=== PATIENT | male | born 1955 | race Caucasian/White ===

== ENCOUNTER 2024-02-13 16:32 | Inpatient (IN) | payer BC, MEDICARE ==
--- NOTE | 2024-02-13 17:29 | ED ---
Neuro HPI - General Chief Complaint: Neuro Symptoms/Deficit Stated Complaint: neuro sympt Time Seen by Provider: 02/13/24 17:09 Source: patient, RN notes reviewed, old records reviewed Mode of arrival: ambulatory Limitations: no limitations - History of Present Illness Is the patient presenting with stroke symptoms?: Yes -: days(s) Initial Comments: This is a 68-year-old male to the ER for evaluation of expressive aphasia patient has had expressive aphasia for going on 5 days, severe symptoms of expr essive aphasia waxing and waning symptoms do appear to be better now than they were at the onset. Patient did not present to the ER initially because you followed up with family as his son was getting and he did not want to miss the wedding is at bedside states symptoms are improving but still persistent patient does have history of high blood pressure cholesterol diabetes Location: speech, dysarthria History of same: Yes Place: home Severity: severe Quality: improving Improves With: time Worsens With: none On Anticoagulants: Yes Context: sudden onset Treatments Prior to Arrival: none - Related Data Home Medications: Previous Rx's Medication Instructions Recorded Aspirin 325 mg PO DAILY tab 02/15/24 Atorvastatin [Lipitor] 80 mg PO HS #30 tab 02/15/24 Chlorthalidone 25 mg PO DAILY #30 tablet 02/15/24 Clopidogrel [Plavix] 75 mg PO DAILY #30 tab 02/15/24 Losartan Potassium [Cozaar] 100 mg PO HS #30 tab 02/15/24 Allergies/Adverse Reactions: Allergies Allergy/AdvReac Type Severity Reaction Status Date / Time No Known Allergies Allergy Verified 02/19/24 16:36 Review of Systems ROS Statement: Those systems with pertinent positive or pertinent negative responses have been documented in the HPI. ROS Other: All systems not noted in ROS Statement are negative. General Exam - General Exam Comments Initial Comments: Significant expressive aphasia Limitations: no limitations General appearance: alert, in no apparent distress, anxious Head exam: Present: atraumatic, normocephalic, normal inspection Eye exam: Present: normal appearance, PERRL, EOMI. Absent: scleral icterus, conjunctival injection, periorbital swelling ENT exam: Present: normal exam, mucous membranes moist Neck exam: Present: normal inspection. Absent: tenderness, meningismus, lymphadenopathy Respiratory exam: Present: normal lung sounds bilaterally. Absent: respiratory distress, wheezes, rales, rhonchi, stridor Cardiovascular Exam: Present: regular rate, normal rhythm, normal heart sounds. Absent: systolic murmur, diastolic murmur, rubs, gallop, clicks GI/Abdominal exam: Present: soft, normal bowel sounds. Absent: distended, tenderness, guarding, rebound, rigid Extremities exam: Present: normal inspection, full ROM, normal capillary refill. Absent: tenderness, pedal edema, joint swelling, calf tenderness Back exam: Present: normal inspection Neurological exam: Present: alert, oriented X3, CN II-XII intact Psychiatric exam: Present: normal affect, normal mood Skin exam: Present: warm, dry, intact, normal color. Absent: rash Stroke MDM - Lab Data Result diagrams: 02/13/24 17:26 02/13/24 17: Lab Results 02/13/24 02/13/24 02/13/24 Range/Units 17:26 17:26 17:26 WBC 5.7 (3.8-10.6) k/uL RBC 4.68 (4.30-5.90) m/uL Hgb 13.9 (13.0-17.5) gm/dL Hct 42.7 (39.0-53.0) % MCV 91.2 (80.0-100.0) fL MCH 29.7 (25.0-35.0) pg MCHC 32.6 (31.0-37.0) g/dL RDW 12.5 (11.5-15.5) % Plt Count 265 (150-450) k/uL MPV 6.8 Neutrophils % 66 % Lymphocytes % 22 % Monocytes % 9 % Eosinophils % 1 % Basophils % 1 % Neutrophils # 3.8 (1.3-7.7) k/uL Lymphocytes # 1.2 (1.0-4.8) k/uL Monocytes # 0.5 (0-1.0) k/uL Eosinophils # 0.1 (0-0.7) k/uL Basophils # 0.0 (0-0.2) k/uL PT 10.5 (10.0-12.5) sec INR 1.0 (<1.2) APTT 23.4 (22.0-30.0) sec Sodium 141 (137-145) mmol/L Potassium 4.2 (3.5-5.1) mmol/L Chloride 104 (98-107) mmol/L Carbon Dioxide 30 (22-30) mmol/L Anion Gap 7 mmol/L BUN 16 (9-20) mg/dL Creatinine 1.21 (0.66-1.25) mg/dL Est GFR (CKD-EPI)AfAm 72 (>60 ml/min/1.73 sqM) Est GFR (CKD-EPI)NonAf 62 (>60 ml/min/1.73 sqM) Glucose 80 (74-99) mg/dL Estimated Ave Glu mg/dL mg/dL Hemoglobin A1c (<=6.0) % Calcium 10.0 (8.4-10.2) mg/dL Total Bilirubin 1.0 (0.2-1.3) mg/dL AST 32 (17-59) U/L ALT 31 (4-49) U/L Alkaline Phosphatase 54 (38-126) U/L Creatine Kinase 110 (55-170) U/L Troponin I (0.000-0.034) ng/mL Total Protein 7.6 (6.3-8.2) g/dL Albumin 4.4 (3.5-5.0) g/dL 02/13/24 02/13/24 Range/Units 17:26 17:26 WBC (3.8-10.6) k/uL RBC (4.30-5.90) m/uL Hgb (13.0-17.5) gm/dL Hct (39.0-53.0) % MCV (80.0-100.0) fL MCH (25.0-35.0) pg MCHC (31.0-37.0) g/dL RDW (11.5-15.5) % Plt Count (150-450) k/uL MPV Neutrophils % % Lymphocytes % % Monocytes % % Eosinophils % % Basophils % % Neutrophils # (1.3-7.7) k/uL Lymphocytes # (1.0-4.8) k/uL Monocytes # (0-1.0) k/uL Eosinophils # (0-0.7) k/uL Basophils # (0-0.2) k/uL PT (10.0-12.5) sec INR (<1.2) APTT (22.0-30.0) sec Sodium (137-145) mmol/L Potassium (3.5-5.1) mmol/L Chloride (98-107) mmol/L Carbon Dioxide (22-30) mmol/L Anion Gap mmol/L BUN (9-20) mg/dL Creatinine (0.66-1.25) mg/dL Est GFR (CKD-EPI)AfAm (>60 ml/min/1.73 sqM) Est GFR (CKD-EPI)NonAf (>60 ml/min/1.73 sqM) Glucose (74-99) mg/dL Estimated Ave Glu mg/dL 120 mg/dL Hemoglobin A1c 5.8 (<=6.0) % Calcium (8.4-10.2) mg/dL Total Bilirubin (0.2-1.3) mg/dL AST (17-59) U/L ALT (4-49) U/L Alkaline Phosphatase (38-126) U/L Creatine Kinase (55-170) U/L Troponin I <0.012 (0.000-0.034) ng/mL Total Protein (6.3-8.2) g/dL Albumin (3.5-5.0) g/dL - NIH Stroke Scale 1a. Level of Consciousness: (0) alert 1b. LOC Questions: (1) answers 1 question correctly 1c. LOC Commands: (0) performs tasks correctly 2. Best Gaze: (0) normal 3. Visual: (0) no visual loss 4. Facial Palsy: (0) normal symmetrical movement 5a. Motor Arm Left: (0) no drift 5b. Motor Arm Right: (0) no drift 6a. Motor Leg Left: (0) no drift 6b. Motor Leg Right: (0) no drift 7. Limb Ataxia: (0) absent 8. Sensory: (0) normal 9. Best Language: (1) mild/moderate aphasia 10. Dysarthria: (1) mild/moderate dysarthria 11. Extinction/Inattention: (0) no abnormality - Thrombolytic Inclusion/Exclusion Thrombolytic Exclusion Criteria: Symptom Onset > 4.5 Hours - Medical Decision Making 68 male to ER for evaluation of acute CVA patient will be admitted for further evaluation and treatment - Radiology Data Radiology results: report reviewed (CT brain CTA head neck negative for acute disease), image reviewed - EKG Data -: EKG Interpreted by Me (EKG is sinus 88 ME 170 QRS 100 QTc 399) Past Medical History Past Medical History: Hyperlipidemia, Hypertension History of Any Multi-Drug Resistant Organisms: None Reported Past Surgical History: Cholecystectomy Past Psychological History: No Psychological Hx Reported Smoking Status: Never smoker Past Alcohol Use History: None Reported Past Drug Use History: None Reported Course Vital Signs 02/13/24 02/13/24 02/13/24 16:40 17:25 17:53 Temperature 98 F Pulse Rate 105 H 93 96 Respiratory 18 20 18 Rate Blood Pressure 153/79 159/91 134/81 O2 Sat by Pulse 96 96 94 L Oximetry 02/13/24 02/13/24 02/13/24 18:45 19:38 22:16 Temperature Pulse Rate 90 86 86 Respiratory 20 18 19 Rate Blood Pressure 158/98 170/91 161/101 O2 Sat by Pulse 95 93 L 94 L Oximetry 02/14/24 02/14/24 02/14/24 02:10 06:10 07:51 Temperature 97.7 F 98.1 F Pulse Rate 82 86 75 Respiratory 18 18 16 Rate Blood Pressure 151/101 119/56 156/99 O2 Sat by Pulse 97 97 96 Oximetry 02/14/24 02/14/24 02/14/24 11:29 14:22 17:23 Temperature 99.4 F Pulse Rate 67 84 87 Respiratory 18 18 16 Rate Blood Pressure 140/100 181/105 O2 Sat by Pulse 99 97 96 Oximetry 02/14/24 02/14/24 02/14/24 17:25 17:47 20:29 Temperature Pulse Rate 79 Respiratory 17 Rate Blood Pressure 185/110 154/90 174/94 O2 Sat by Pulse 97 Oximetry - Reevaluation(s) Reevaluation #1: Medical records reviewed Code stroke paged on patient arrival Reevaluation #2: 02/22/24 17:50 Patient informed of results questions answered Reevaluation #3: Patient symptoms unchanged here in the ER still with significant aphasia Patient and family informed of results questions answered Reevaluation #4: Was pt. sent in by a medical professional or institution (, PA, RIGGING SLINGER, urgent care, hospital, or half-way...) When possible be specific @ -no Did you speak to anyone other than the patient for history (EMS, parent, family, police, friend...)? What history was obtained from this source @ -no Did you review nursing and triage notes (agree or disagree)? Why? @ -agree Are old charts reviewed (outside hosp., previous admission, EMS record, old EKG, old radiological studies, urgent care reports/EKG's, half-way records)? Report findings @ -yes Differential Diagnosis (chest pain, altered mental status, abdominal pain women, abdominal pain men, vaginal bleeding, weakness, fever, dyspnea, syncope, headache, dizziness, GI bleed, back pain, seizure, CVA, palpatations, mental health, musculoskeletal)? @ -prior EKG interpreted by me (3pts min.). @ -yes X-rays interpreted by me (1pt min.). @ -no CT interpreted by me (1pt min.). @ -Yes negative for acute disease U/S interpreted by me (1pt. min.). @ -no What testing was considered but not performed or refused? (CT, X-rays, U/S, labs)? Why? @ -none What meds were considered but not given or refused? Why? @ -none Did you discuss the management of the patient with other professionals (professionals i.e. , PA, RIGGING SLINGER, lab, RT, psych nurse, 7th grade social studies teacher, customer support consultant, teacher, transport corps officer, pillowcase folder)? Give summary @ -no Was smoking cessation discussed for >3mins.? @ -no Was critical care preformed (if so, how long)? @ -yes31 Were there social determinants of health that impacted care today? How? (Homelessness, low income, unemployed, alcoholism, drug addiction, transportation, low edu. Level, literacy, decrease access to med. care, mcc, rehab)? @ -none Was there de-escalation of care discussed even if they declined (Discuss DNR or withdrawal of care, Hospice)? DNR status @ -no What co-morbidities impacted this encounter? (DM, HTN, Smoking, COPD, CAD, Cancer, CVA, ARF, Chemo, Hep., AIDS, mental health diagnosis, sleep apnea, morbid obesity)? @ -none Was patient admitted / discharged? Hospital course, mention meds given and route, prescriptions, significant lab abnormalities, going to OR and other pertinent info. @ - 68 male to ER for evaluation of acute CVA patient will be admitted for further evaluation and treatment, no tPA secondary to 5 days of symptoms Admitted Undiagnosed new problem with uncertain prognosis? @ -no Drug Therapy requiring intensive monitoring for toxicity (Heparin, Nitro, Insulin, Cardizem)? @ -no Were any procedures done? @ -no Diagnosis/symptom? @ -CVA Acute, or Chronic, or Acute on Chronic? @ -Acute Uncomplicated (without systemic symptoms) or Complicated (systemic symptoms)? @ -Complicated Side effects of treatment? @ -no Exacerbation, Progression, or Severe Exacerbation? @ -exacerbation Poses a threat to life or bodily function? How? (Chest pain, USA, OR, pneumonia, PE, COPD, DKA, ARF, appy, cholecystitis, CVA, Diverticulitis, Homicidal, Suicidal, threat to staff... and all critical care pts) @ -yes\ Reevaluation #5: Differential CVA Ischemic stroke, hemorrhagic stroke, brain tumor, atypical migraine, Wernicke's encephalopathy, seizure, multiple sclerosis, meningitis, encephalitis, hypoglycemia, Guillain-Angela, electrolytes disturbance, myasthenia gravis.... This is not meant to be an all-inclusive list - Consultations Consultation #1: Spoke with on-call, no reason to do tPA Consultation #2: Patient will be admitted for further neurologic evaluation and monitoring Critical Care Time Critical Care Time: Yes Total Critical Care Time: 31 Disposition Clinical Impression: CVA (cerebral vascular accident) Disposition: ADMITTED IP TO THIS [facility] Condition: Serious Is patient prescribed a controlled substance at d/c from ED?: No Time of Disposition: 18:30
[2024-02-13] MEDS: ONDANSETRON 4 MG/2 ML VIAL IVP STA (17:51)
[2024-02-13] MEDS: SODIUM CHLORIDE 0.9% 1,000 ML IV STA (17:53)
[2024-02-13 17:57] LABS: Basophils % (A) 1 %; Eosinophils # (A) 0.1 k/uL (0-0.7); Eosinophils % (A) 1 %; HCT 42.7 % (39.0-53.0); HGB 13.9 gm/dL (13.0-17.5); Lymphocytes # (A) 1.2 k/uL (1.0-4.8); Lymphocytes % (A) 22 %; MCH 29.7 pg (25.0-35.0); MCHC 32.6 g/dL (31.0-37.0); MCV 91.2 fL (80.0-100.0); Mean Platelet Volume 6.8; Monocytes # (A) 0.5 k/uL (0-1.0); Monocytes % (A) 9 %; Neutrophils # (A) 3.8 k/uL (1.3-7.7); Neutrophils % (A) 66 %; Platelet Count 265 k/uL (150-450); RBC 4.68 m/uL (4.30-5.90); RDW 12.5 % (11.5-15.5); WBC 5.7 k/uL (3.8-10.6)
[2024-02-13 18:08] LABS: ALT 31 U/L (4-49); AST 32 U/L (17-59); African American GFR (CKD) 72 (>60 ml/min/1.73 sqM); Albumin 4.4 g/dL (3.5-5.0); Alkaline Phosphatase 54 U/L (38-126); Anion Gap 7 mmol/L; Blood Urea Nitrogen 16 mg/dL (9-20); Carbon Dioxide 30 mmol/L (22-30); Chloride 104 mmol/L (98-107); Creatine Kinase 110 U/L (55-170); Glucose 80 mg/dL (74-99); Non-African American GFR(CKD) 62 (>60 ml/min/1.73 sqM); Potassium 4.2 mmol/L (3.5-5.1); Sodium 141 mmol/L (137-145); Total Protein 7.6 g/dL (6.3-8.2)
[2024-02-13 18:17] LABS: Partial Thromboplastin Time 23.4 sec (22.0-30.0); Prothrombin Time 10.5 sec (10.0-12.5)
--- NOTE | 2024-02-13 18:53 | XR ---
EXAMINATION TYPE: XR chest 2V DATE OF EXAM: 02/13/2024 COMPARISON: None INDICATION: Altered mental status TECHNIQUE: Frontal and lateral views of the chest are obtained. FINDINGS: The heart size is normal. The pulmonary vasculature is normal. The lungs are clear. IMPRESSION: 1. No acute pulmonary process. [facility], , 02/13/2024 6:51 PM
[2024-02-13 19:07] LABS: Amphetamine Screen,Urine Not Detected (NotDetected); Barbiturate Screen,Urine Not Detected (NotDetected); Benzodiazepines Screen,Urine Not Detected (NotDetected); Cocaine Screen,Urine Not Detected (NotDetected); Methadone Screen, Urine Not Detected (NotDetected); Opiate Screen,Urine Not Detected (NotDetected); Oxycodone Screen, Urine Not Detected (NotDetected); Phencyclidine Screen,Urine Not Detected (NotDetected); Tricyclic Antidepressant,Urine Not Detected (NotDetected); Urn Cannabinoid Scrn Not Detected (NotDetected)
--- NOTE | 2024-02-13 19:30 | CT ---
EXAMINATION TYPE: CODE STROKE: CT brain wo contr DATE OF EXAM: 02/13/2024 COMPARISON: None INDICATION: Symptoms started , pt having trouble talking and forming words, pt also having tr ouble using right hand, sent by Dr. SANDOVAL: 1143.6 mGycm, Automated exposure control for dose reduction was used. CONTRAST: None CT of the brain is performed utilizing 3 mm thick sections through the posterior fossa and 3 mm thick sections through the remaining calvarium. Study is performed within 24 hours of arrival to the hosp ital. No abnormal hyperdensity is present to suggest an acute intracranial hemorrhage. No mass lesion is evident. No acute infarcts are evident. There is some hypodensity within the left centrum semiovale subcortica l white matter. Chronic appearing white matter ischemic change likely present. Subcortical infarcts a nd less likely but remains within the differential Ventricles and sulci are appropriate for the patient age. Paranasal sinuses and mastoid air cells within the [id number] are clear. IMPRESSION: 1. There appear to be some mild white matter changes within the left lauren radiata could be subcor tical ischemic changes of indeterminate age. Consider MRI for closer evaluation. 2. No additional suspicious acute changes. [facility], , 02/13/2024 7:28 PM
[2024-02-13] MEDS: SODIUM CHLORIDE 0.9% 1,000 ML IV SCH (19:37)
[2024-02-13] MEDS: ASPIRIN 325 MG TAB PO STA (20:46)
--- NOTE | 2024-02-13 22:38 | CT ---
EXAMINATION TYPE: CT angio head neck DATE OF EXAM: 02/13/2024 HISTORY: Symptoms started , pt having trouble talking and forming words, pt also having troub le using right hand, sent by COMPARISON: CT DLP: 765.2 mGycm. Automated Exposure Control for Dose Reduction was Utilized. TECHNIQUE: CTA scan of the neck is performed with IV Contrast, patient injected with 65ml mL of Isov ue 370, axial images are obtained, coronal and sagittal reformatted images are reviewed. Three-D misti nstructed images are created on an independent workstation and reviewed. Source images are reviewed. FINDINGS: Carotid/Vascular Structures: Common origin of the left common carotid artery and right subclavian fro m the innominate. There is a focal area of narrowing within the proximal left common carotid artery a t the thoracic inlet, example image series 401 image 74. Severe narrowing is present within the left common carotid bulb. There is a critical stenosis at the left internal carotid artery origin. Sever e stenosis is present at the origin right internal carotid artery. Vertebral arteries are codominant. Internal carotid arteries and vertebral arteries are patent to the skull base. Cervical of Ferguson: Vertebral basilar system appears normal. Posterior cerebral vasculature is unrema rkable. Internal carotid arteries bifurcate normally into A1 and M1 segments. A2 segments are normal. The anterior communicating artery is patent. The right posterior communicating artery is patent. The left posterior communicating artery is patent. IMPRESSION: 1. Critical stenosis left internal carotid artery origin. 2. Severe narrowing right internal carotid artery origin. 3. Additional areas of moderate narrowing of the proximal common carotid vessels. 2. No severe stenoses pilot point of [place] NASCET criteria was used in interpretation of this exam? [facility], , 02/13/2024 10:36 PM
[2024-02-14] MEDS: ASPIRIN 325 MG TAB PO SCH (09:09)
[2024-02-14] MEDS: HEPARIN SODIUM,PORCINE 5,000 UNIT/ML 1 ML VIAL SQ SCH (09:10)
[2024-02-14] MEDS: CLOPIDOGREL 75 MG TAB PO SCH (09:10)
--- NOTE | 2024-02-14 09:39 | P.GSCN ---
History of Present Illness Consult date: 02/14/24 Reason for Consult: Carotid stenosis Requesting physician: Lawrence Wheatley History of present illness: This is a pleasant 68-year-old male with a past medical history including hypertension and hyperlipidemia who presented to the emergency department with his for complaints of expressive aphasia. Apparently symptoms began last and he states he cannot get his words and thoughts out that he wants. He denies any slurring of his speech. States symptoms have been consistent for the last few days duration. Denies any other focal deficits associated with that. However does state that he has had some right hand weakness for the past 3 months duration as well as feelings that he has no control of the right arm. States that he had seen his doctor in the beginning of January and also at that time did have some complaints of shoulder pain and they wanted to do physical therapy. He was worked up for a stroke in the emergency department and underwent brain CT as well as a CTA of the head and neck. CTA head and neck is concerning for bilateral ICA stenosis and therefore vascular surgery was consul francisco. Patient denies any history of known carotid disease, no history of cardiac disease. He currently denies any shortness of breath, chest pain, abdominal pain, nausea or vomiting. Home meds include amlodipine 5 mg, Crestor 20 mg daily and losartan 50 mg daily. Review of Systems A 14 point review systems was completed all pertinent positives and negatives as stated in the HPI. Past Medical History Past Medical History: Hyperlipidemia, Hypertension History of Any Multi-Drug Resistant Organisms: None Reported Past Surgical History: Cholecystectomy Past Psychological History: No Psychological Hx Reported Smoking Status: Never smoker Past Alcohol Use History: None Reported Past Drug Use History: None Reported Medications and Allergies Home Medications Medication Instructions Recorded Confirmed Type Losartan [Cozaar] 50 mg PO DAILY 02/13/24 02/13/24 History Rosuvastatin [Crestor] 20 mg PO DAILY 02/13/24 02/13/24 History amLODIPine [Norvasc] 5 mg PO DIRECTED 02/13/24 02/13/24 History Allergies Allergy/AdvReac Type Severity Reaction Status Date / Time No Known Allergies Allergy Verified 02/13/24 17:36 Surgical - Exam Vital Signs Temp Pulse Resp BP Pulse Ox 98 F 105 H 18 153/79 96 02/13/24 16:40 02/13/24 16:40 02/13/24 16:40 02/13/24 16:40 02/13/24 16:40 General appearance: The patient is alert, oriented, appears in no acute distress. HET: Head is normocephalic and atraumatic. Pupils are equal and reactive. Neck: Supple. Left carotid bruit. Heart: Regular. Lungs: Equal expansion, normal respiratory effort. Abdomen: Soft, nontender, nondistended. Extremities: Normal skin color and turgor. +2 palpable radial and DP pulses. Neurological: Patient with expressive aphasia. Difficulty explaining things and answering questions. Minimal right upper extremity weakness. Results - Labs 02/13/24 17:26 02/13/24 17:26 Diabetes panel 02/13/24 Range/Units 17:26 Sodium 141 (137-145) mmol/L Potassium 4.2 (3.5-5.1) mmol/L Chloride 104 (98-107) mmol/L Carbon Dioxide 30 (22-30) mmol/L BUN 16 (9-20) mg/dL Creatinine 1.21 (0.66-1.25) mg/dL Glucose 80 (74-99) mg/dL Calcium 10.0 (8.4-10.2) mg/dL AST 32 (17-59) U/L ALT 31 (4-49) U/L Alkaline Phosphatase 54 (38-126) U/L Total Protein 7.6 (6.3-8.2) g/dL Albumin 4.4 (3.5-5.0) g/dL Calcium panel 02/13/24 Range/Units 17:26 Calcium 10.0 (8.4-10.2) mg/dL Albumin 4.4 (3.5-5.0) g/dL Pituitary panel 02/13/24 Range/Units 17:26 Sodium 141 (137-145) mmol/L Potassium 4.2 (3.5-5.1) mmol/L Chloride 104 (98-107) mmol/L Carbon Dioxide 30 (22-30) mmol/L BUN 16 (9-20) mg/dL Creatinine 1.21 (0.66-1.25) mg/dL Glucose 80 (74-99) mg/dL Calcium 10.0 (8.4-10.2) mg/dL Adrenal panel 02/13/24 Range/Units 17:26 Sodium 141 (137-145) mmol/L Potassium 4.2 (3.5-5.1) mmol/L Chloride 104 (98-107) mmol/L Carbon Dioxide 30 (22-30) mmol/L BUN 16 (9-20) mg/dL Creatinine 1.21 (0.66-1.25) mg/dL Glucose 80 (74-99) mg/dL Calcium 10.0 (8.4-10.2) mg/dL Total Bilirubin 1.0 (0.2-1.3) mg/dL AST 32 (17-59) U/L ALT 31 (4-49) U/L Alkaline Phosphatase 54 (38-126) U/L Total Protein 7.6 (6.3-8.2) g/dL Albumin 4.4 (3.5-5.0) g/dL - Imaging Comments: Brain CT reports there appears to be some mild white matter changes within the left lauren radiata could be subcortical ischemic changes of indeterminate age. Consider MRI for closer evaluation. No additional suspicious acute changes CT angiogram head and neck reports critical stenosis left internal carotid artery origin. Severe narrowing right internal carotid artery origin. Additional areas of moderate narrowing of the proximal common carotid vessels. No severe stenosis reno-sparks of [place]. Assessment and Plan Assessment: 1. Symptomatic severe left ICA stenosis 2. Right ICA stenosis 3. Expressive aphasia, likely ischemic stroke 4. Right upper extremity weakness for past 3 months 5. History of hypertension 6. History of hyperlipidemia Plan: 1. Bilateral carotid ultrasound ordered 2. Brain MRI ordered by neurology, pending 3. Patient has been started on a atorvastatin 80 mg at bedtime, aspirin 325 mg daily and Plavix 75 mg daily 4. Will await further recommendations from neurology 5. Further recommendations forthcoming per vascular surgeon Thank you for this consultation, we will continue to follow. The impression and plan of care has been dictated as directed. Dr. Calzada I performed a history and examination of this patient, discussed the same with the dictator. I agree with the dictator's note ,documented as a scribe. Any additional findings or plans will be noted.
[2024-02-14] MEDS ORDERED: NON FORMULARY DRUG (Rosuvastatin 20 MG Tablet) PO SCH (10:00)
[2024-02-14] MEDS: ENOXAPARIN 40 MG/0.4 ML SYRINGE SQ SCH (10:04)
--- NOTE | 2024-02-14 10:38 | US ---
EXAMINATION TYPE: US carotid duplex BILAT DATE OF EXAM: 02/14/2024 COMPARISON: CTA head neck 02/13/24 CLINICAL INDICATION: Male, 68 years old with history of aphasia; aphasia per order. Hx hypertension, hyperlipidemia. TECHNIQUE: Carotid duplex ultrasound examination. Indirect Doppler criteria was utilized. FINDINGS: EXAM MEASUREMENTS: RIGHT: Peak Systolic Velocity (PSV) cm/sec ----- Right CCA: 88.6 ----- Right ICA: 371.9 ----- Right ECA: 185.6 ICA/CCA ratio: 4.2 RIGHT: End Diastole cm/sec ----- Right CCA: 24.8 ----- Right ICA: 158.5 ----- Right ECA: 20.7 LEFT: Peak Systolic Velocity (PSV) cm/sec ----- Left CCA: 54.5 ----- Left ICA: 423.8 ----- Left ECA: 196.8 ICA/CCA ratio: 7.8 LEFT: End Diastole cm/sec ----- Left CCA: 20.4 ----- Left ICA: 170.3 ----- Left ECA: 15.6 VERTEBRALS (direction of flow): Right Vertebral: Antegrade Left Vertebral: Antegrade Rhythm: Normal DORR OPERATOR NOTES: Great amount of plaque seen within bilateral bulbs and bilateral ICAs, more plaq ue seen on the left. Significant stenosis seen within bilateral ICAs. Appearance of trickle flow seen within left ICA. Elevated velocities noted within right bulb, bilateral ICAs, and bilateral ECAs. ICA/CCA ratio was 4.2 on the right and 7.8 on the left IMPRESSION: Marked amount of atherosclerotic plaque seen within the bilateral carotid bulbs and bilateral ICA wit h left greater than right. Near occlusion of the left ICA at its origin. Greater than 70% stenosis of the right ICA at its origin. Findings correspond to CTA from yesterday. Criteria for Assigning % of Stenosis / Diameter reduction (Estimation based on the indirect measurements of the internal carotid artery velocities (ICA PSV). 1. Normal (no stenosis)=ICA PSV < 125 cm/s: ratio < 2.0: ICA EDV<40 cm/s. 2. Less than 50% stenosis=ICA PSV < 125 cm/s: ratio < 2.0: ICA EDV<40 cm/s. 3. 50 to 69% stenosis=ICA PSV of 125 to 230 cm/s: ration 2.0 ? 4.0: ICA EDV 40-100 cm/s. 4. Greater than 70% stenosis to near occlusion= ICA PSV > 230 cm/s: ratio > 4.0: ICA EDV > 100 cm/s. 5. Near occlusion= ICA PSV velocities may be low or undetectable: variable ratio and ICA EDV. 6. Total occlusion=unable to detect flow. [facility], , 02/14/2024 10:36 AM
[2024-02-14] MEDS: LOSARTAN 50 MG TAB PO SCH (10:39)
[2024-02-14 11:03] LABS: Chol/HDL Ratio 4.76 Ratio; LDL Cholesterol,Calculated 62.6 mg/dL (0.0-131.0)
--- NOTE | 2024-02-14 14:49 | P.HPIM ---
History of Present Illness H&P Date: 02/14/24 Chief Complaint: Trouble speaking This is a pleasant 68-year-old patient, follows with Kennedi Cheatham with Dr. Friend. Chronic stable medical conditions include hypertension, hyperlipidemia. About 6 days ago that is on patient noted that having trouble finding words while speaking. As her son was getting she decided attend a wedding. Finally showed up at his family doctor's office yesterday who sent the patient down to the ER. Finding what has improved some since that day. No change in swallowing no headache no change in vision or any other focal weakness. 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 No smoking alcohol. . Physical examination: VITAL SIGNS: 98, 105, 18, 153 x 79, 96% room air GENERAL: BMI 29.6, reclining bed awake comfortable. EYES: Pupils equal. Conjunctiva dawit l. HEENT: External appearance of nose and ears normal, oral cavity grossly normal. NECK: JVD not raised; masses not palpable. HEART: First and second heart sounds are normal; no edema. LUNGS: Respiratory rate normal; clear to auscultation. ABDOMEN: Soft, nontender, liver spleen not palpable, no masses palpable. PSYCH: Alert and oriented x3; mood and affect dawit l. MUSCULOSKELETAL:No Clubbing/cyanosis;muscles-grossly intact NEUROLOGICAL: Cranial nerves grossly intact; no facial asymmetry, power and sensation grossly intact. Trouble finding words when speaking. Content is fine otherwise. LYMPHATICS: No lymph nodes palpable in the axilla and neck INVESTIGATIONS, reviewed in the clinical context: February 13, 2024: White count 5.7 hemoglobin 13.9 platelets 265 sodium 141 potassium 4.2 BUN 16 creatinine 1.21 Troponin I less than 0.012 LDL 62.6 Urine drug screen: Negative EKG tracing personally reviewed by me-normal sinus rhythm. Chest x-ray film personally reviewed by me-unremarkable. Borderline cardiomegaly CT brain without contrast: Some white matter changes mild in the left lauren radiata area. Could be subcortical ischemic changes of indeterminate age. CT angiogram of head and neck: Critical stenosis left internal carotid artery at the origin. Severe narrowing right internal carotid artery origin. Additional areas of moderate narrowing of the proximal common carotid vessels. Carotid Doppler: Moderate amount of atherosclerotic plaque seen within the bilateral carotid bulbs and bilateral ICA with left greater than right. Near o cclusion of the left ICA at its origin. Greater than 70% stenosis of the right ICA at its origin. Assessment and plan: -Subacute stroke affecting the speech area with symptoms starting 5 days prior to presentation. Expressive dysphasia Aspirin. Plavix. Lipitor. Neurology following. Neurochecks. MRI brain pending -Critical stenosis left internal carotid artery at the region more than 90%. Right internal carotid artery more than 70%. Vascular surgery consulted. -Essential hypertension Cozaar 50 mg a day -Hyperlipidemia Lipitor 80 mg nightly -Acute expressive dysarthria from stroke Speech therapy consult -DNR Care was discussed with the patient at the bedside. Questions answered. Past Medical History Past Medical History: Hyperlipidemia, Hypertension History of Any Multi-Drug Resistant Organisms: None Reported Past Surgical History: Cholecystectomy Past Psychological History: No Psychological Hx Reported Smoking Status: Never smoker Past Alcohol Use History: None Reported Past Drug Use History: None Reported Medications and Allergies Home Medications Medication Instructions Recorded Confirmed Type Losartan [Cozaar] 50 mg PO DAILY 02/13/24 02/13/24 History Rosuvastatin [Crestor] 20 mg PO DAILY 02/13/24 02/13/24 History amLODIPine [Norvasc] 5 mg PO DIRECTED 02/13/24 02/13/24 History Allergies Allergy/AdvReac Type Severity Reaction Status Date / Time No Known Allergies Allergy Verified 02/13/24 17:36 Physical Exam Vitals: Vital Signs Temp Pulse Resp BP Pulse Ox 02/14/24 07:51 98.1 F 75 16 156/99 96 02/14/24 06:10 97.7 F 86 18 119/56 97 02/14/24 02:10 82 18 151/101 97 02/13/24 22:16 86 19 161/101 94 L 02/13/24 19:38 86 18 170/91 93 L 02/13/24 18:45 90 20 158/98 95 02/13/24 17:53 96 18 134/81 94 L 02/13/24 17:25 93 20 159/91 96 02/13/24 16:40 98 F 105 H 18 153/79 96 Intake and Output 02/13/24 02/14/24 02/14/24 22:59 06:59 14:59 Other: Weight 88.451 kg Results CBC & Chem 7: 02/13/24 17:26 02/13/24 17:26
--- NOTE | 2024-02-14 15:47 | CA ---
Transthoracic Echo Report Name: Mich Pendleton Age: 68 Gender: M : 1955 Exam Date: 02/14/2024 10:42 Exam Location: [facility] Ht (in): 68 Wt (lb): 195 Ordering Physician: Kev Paez DO Attending/Referring Phys: [id number], [employer] Loly Correa RDCS Procedure CPT: Indications: Thrombus Cardiac Hx: Technical Quality: Good Contrast 1: Total Dose (mL): Contrast 2: Total Dose (mL): MEASUREMENTS (Male / Female) Normal Values 2D ECHO LV Diastolic Diameter PLAX 4.5 cm 4.2 - 5.9 / 3.9 - 5.3 cm LV Systolic Diameter PLAX 3.1 cm IVS Diastolic Thickness 0.9 cm 0.6 - 1.0 / 0.6 - 0.9 cm LVPW Diastolic Thickness 1.0 cm 0.6 - 1.0 / 0.6 - 0.9 cm LV Relative Wall Thickness 0.4 LVOT Diameter 2.2 cm LV Diastolic Volume MOD BP 114.7 cm??? 67 - 155 / 56 - 104 cm??? LV Systolic Volume MOD BP 42.6 cm??? 22 - 58 / 19 - 49 cm??? LV Ejection Fraction MOD BP 62.9 % >= 55 % LV Cardiac Index MOD BP 2422.3 cm???/min???m??? LV Diastolic Volume MOD 4C 111.9 cm??? LV Systolic Volume MOD 4C 40.5 cm??? LV Ejection Fraction MOD 4C 63.8 % LV Cardiac Index MOD 4C 2399.5 cm???/min???m??? LV Diastolic Length 4C 8.8 cm LV Systolic Length 4C 7.7 cm LV Diastolic Volume MOD 2C 113.8 cm??? LV Systolic Volume MOD 2C 40.8 cm??? LV Ejection Fraction MOD 2C 64.2 % LV Cardiac Index MOD 2C 2453.9 cm???/min???m??? LV Diastolic Length 2C 9.1 cm LV Systolic Length 2C 7.0 cm LA Volume 47.0 cm??? 18 - 58 / 22 - 52 cm??? LA Volume Index 22.6 cm???/m??? 16 - 28 cm???/m??? Ascending Aorta Diameter 4.1 cm DOPPLER AV Peak Velocity 122.4 cm/s AV Peak Gradient 6.0 mmHg AV Mean Velocity 90.5 cm/s AV Mean Gradient 3.5 mmHg AV Velocity Time Integral 27.6 cm LVOT Peak Velocity 93.5 cm/s LVOT Peak Gradient 3.5 mmHg LVOT Velocity Time Integral 19.0 cm LVOT Stroke Volume 75.4 cm??? LVOT Stroke Volume Index 37.3 ml/m??? LVOT Cardiac Index 2532.2 cm???/min???m??? AV Area Cont Eq vti 2.7 cm??? AV Area Cont Eq pk 3.0 cm??? MV Area PHT 4.9 cm??? Mitral E Point Velocity 56.1 cm/s Mitral A Point Velocity 74.7 cm/s Mitral E to A Ratio 0.8 MV Deceleration Time 156.2 ms PV Peak Velocity 114.6 cm/s PV Peak Gradient 5.3 mmHg FINDINGS Left Ventricle Left ventricular ejection fraction is estimated at 60-65 %. Left ventricular cavity size normal. Left ventricular wall thickness normal. No obvious regional wall motion abnormalities. Negative bubble study. Right Ventricle Normal right ventricular size and function. Unable to estimate the right ventricular systolic pressure. Right Atrium Normal right atrial size. Left Atrium Normal left atrial size. Mitral Valve Structurally normal mitral valve. No mitral stenosis, regurgitation or prolapse. Aortic Valve Trileaflet aortic valve. Aortic valve sclerosis. No aortic valve stenosis or regurgitation. Tricuspid Valve Structurally normal tricuspid valve. No tricuspid stenosis. No tricuspid regurgitation. Pulmonic Valve Structurally normal pulmonic valve. No pulmonic stenosis. Trace pulmonic regurgitation. Pericardium No pericardial effusion. Aorta Aortic annulus normal. Ascending aorta mildly enlarged. CONCLUSIONS Normal LV systolic function Previewed by: Dr. Dandre Cardenas MD (Electronically Signed) Final Date: 14 February 2024 15:46
--- NOTE | 2024-02-14 17:03 | MR ---
EXAMINATION TYPE: MR brain wo con DATE OF EXAM: 02/14/2024 4:51 PM CLINICAL INDICATION: Male, 68 years old with history of stroke; PHH, stroke COMPARISON: 02/13/2024. TECHNIQUE: Multi planar, multi sequence imaging was performed through the brain including: T1, T2, In version recovery, Diffusion weighted imaging, and gradient echo imaging. No gadolinium was given. FINDINGS: Scattered areas of restricted diffusion throughout the cortex probably left frontal lobe an d left parietal left temporal lobe. The susceptibility blooming artifact within the cortex in this re gion suggesting laminar necrosis. The myers-white junctions, ventricular system, basal cisterns appear unremarkable. Scattered foci of high T2 signal intensity are seen within the periventricular white matter. Midline structures show no abnormality. The bone marrow signal is within normal limits. Paranasal sinuses and mastoid air cells: Trace left mastoid air cell effusion. Visualized orbits: Orbital contents are intact. IMPRESSION: 1. Acute/subacute CVA predominantly involving the left MCA territory predominantly involving the [place] ex with evidence of laminar necrosis 2. Nonspecific white matter changes, likely secondary to small vessel ischemic disease. [facility], , 02/14/2024 5:01 PM
--- NOTE | 2024-02-14 17:27 | P.CNNES ---
History of Present Illness Consult date: 02/14/24 Requesting physician: Kev Paez Reason for Consult: cva History of Present Illness: This is a 68-year-old gentleman who present emergency department because of speech difficulty. Patient is accompanied with his was at bedside. He stated that he is having difficulty getting his words out since this past and he did not seek any medical attention since he attended his son's wedding even though his family members asked him to have this addressed but he refused. It seems that about 3-month ago the patient had right arm weakness and he followed up with primary care physician and was thought he had a pinched nerve and recommended physical therapy but he did not get physical therapy. Denies any history of stroke in the past. He does have history of hypertension as well as hyperlipidemia. He denies being on any antiplatelet. Denies tobacco use, alcohol use or any illicit drug use. Some of the workup during this hospital visit consisted of: Panel is triglyceride 157, cholesterol is 119, LDL 62 and HDL is 25. Hemoglobin A1c is 5.8. Urine drug screen is nondetected. CT of the head as there appears to be some mild white matter changes within the left lauren radiata could be subcortical ischemic change of indeterminate age. I personally reviewed the CT and I feel the patient has acute to subacute changes over the left MCA territory. CT angiography of the head and neck is reported as critical stenosis in the left internal carotid artery origin. Severe narrowing in the right internal carotid artery origin. Additional area of moderate narrowing of the proximal common carotid vessel. No severe stenosis [place]. Carotid duplex is reported as marked amount of atherosclerotic plaque seen in the bilateral carotid bulb and bilateral ICA with a left greater than right. Near occlusion on the left ICA at its origin. Greater than 70% stenosis of the right ICA at its origin. Finding corresponds to the CT angiography from yesterday The echo is reported as normal left ventricle systolic function. Review of Systems The positive and negative as per HPI. Past Medical History Past Medical History: Hyperlipidemia, Hypertension History of Any Multi-Drug Resistant Organisms: None Reported Past Surgical History: Cholecystectomy Past Psychological History: No Psychological Hx Reported Smoking Status: Never smoker Past Alcohol Use History: None Reported Past Drug Use History: None Reported Medications and Allergies Home Medications Medication Instructions Recorded Confirmed Type Losartan [Cozaar] 50 mg PO DAILY 02/13/24 02/13/24 History Rosuvastatin [Crestor] 20 mg PO DAILY 02/13/24 02/13/24 History amLODIPine [Norvasc] 5 mg PO DIRECTED 02/13/24 02/13/24 History Allergies Allergy/AdvReac Type Severity Reaction Status Date / Time No Known Allergies Allergy Verified 02/13/24 17:36 Physical Examination - Vital Signs Vital Signs: Vital Signs Temp Pulse Resp BP Pulse Ox 02/14/24 14:22 84 18 97 02/14/24 11:29 99.4 F 67 18 140/100 99 02/14/24 07:51 98.1 F 75 16 156/99 96 02/14/24 06:10 97.7 F 86 18 119/56 97 02/14/24 02:10 82 18 151/101 97 02/13/24 22:16 86 19 161/101 94 L 02/13/24 19:38 86 18 170/91 93 L 02/13/24 18:45 90 20 158/98 95 02/13/24 17:53 96 18 134/81 94 L 02/13/24 17:25 93 20 159/91 96 GENERAL: The patient is lying in bed and is not in acute distress. Carotid: Has bruit over bilateral. NEUROLOGICAL: Higher mental function: The patient is awake, alert, oriented to self, place and time. Patient is following commands. Has expressive aphasia. No neglect. Cranial nerves: The pupils are round, equal and reactive to light and accommodation. Visual hess are full to confrontation throughout. Extraocular movement is intact no nystagmus is noted. Facial sensation is normal to touch throughout. The facial strength is normal throughout. Hearing is normal bilaterally to hand rub. Tongue is midline and moved [id number] without any difficulty. No dysarthria is noted. Shoulder shrug is normal bilaterally. Motor: The strength is 5 over 5 throughout. Normal tone and bulk. Cerebellum: Normal finger to nose heel to delacruz bilaterally. Sensation: Sensation is normal to touch throughout. Reflexes (right/left): 2+ throughout. Plantars are downgoing bilaterally. Results - Laboratory Findings CBC and BMP: 02/13/24 17:26 02/13/24 17:26 Abnormal Lab Findings: Abnormal Labs 02/14/24 07:16 Triglycerides 157.00 H HDL Cholesterol 25.00 L Assessment and Plan Assessment: This is a 68-year-old gentleman with underlying history of hypertension, hyperlipidemia who presented emergency department on 02/13/2024 because of expressive aphasia since 02/08/2024 patient refused to have his symptoms be addressed. Also about 3-month ago patient had episode of right hand weakness and followed up with his PCP and it was felt he had a pinched nerve. Acute to subacute ischemic stroke. Symptoms of expressive aphasia. Had a recent right hand weakness. Neurology of stroke is likely due to symptomatic internal carotid artery stenosis. I feel it is the left ICA Severe bilateral ICA stenosis worse on the left than the right Hypertension Hyperlipidemia Plan: I consulted vascular surgery team I ordered MRI of the brain, TSH. Patient was given aspirin 325 once in the ED then was started on aspirin 325 daily by the ED physician. In addition I started the patient on Plavix 75 mg daily. I will load the patient with Plavix 300 mg once. The patient was not on any antiplatelet prior to this. I also started the patient on Lipitor 80 mg nightly for secondary stroke prophylaxis Continue neurochecks Cardiac monitoring PT OT and DIRECTOR ON AIR are consulted Recommend systolic blood pressure to be 1 60-1 80 at this time. Will defer the rest of the medical management to primary and other specialist For DVT prophylaxis patient was started on Lovenox by the primary team The plan discussed with the patient and his was at bedside Thank you for the consultation Time with Patient: Greater than 30
[2024-02-14] MEDS: CLOPIDOGREL 75 MG TAB PO STA (19:34)
[2024-02-14] MEDS: ATORVASTATIN 80 MG TAB PO SCH (20:04)
[2024-02-14 23:58] VITALS: RESP 18
--- NOTE | 2024-02-15 10:28 | P.PN ---
Subjective Progress Note Date: 02/15/24 Principal diagnosis: Carotid stenosis Patient is seen and examined today as a follow-up. He was working with speech therapy who states cognitively he is doing well just suffering from expressive aphasia. He underwent MRI of the brain which reported acute/subacute CVA predominantly involving the left MCA territory predominantly involving the cortex with evidence of laminar necrosis. Nonspecific white matter changes, likely secondary to small vessel ischemic disease. Patient denies any new focal deficits. Denies any chest pain, shortness of breath, abdominal pain nausea or vomiting. Objective - Vital Signs Vital signs: Vital Signs Temp 98.0 F 02/15/24 07:47 Pulse 75 02/15/24 07:47 Resp 18 02/15/24 07:47 BP 167/98 02/15/24 09:22 Pulse Ox 97 02/15/24 07:47 FiO2 Intake & Output 02/14/24 02/15/24 02/15/24 18:59 06:59 18:59 Intake Total 10 Balance 10 Weight 89 kg Intake: IV 10 Invasive Line 1 10 Other: Voiding Method Toilet Toilet # Voids 1 - Exam General appearance: The patient is alert, oriented, appears in no acute distress. HET: Head is normocephalic and atraumatic. Pupils are equal and reactive. Neck: Supple. Left carotid bruit. Heart: Regular. Lungs: Equal expansion, normal respiratory effort. Abdomen: Soft, nontender, nondistended. Extremities: Normal skin color and turgor. Palpable radial and DP pulses. Neurological: Expressive aphasia. Right upper extremity weakness compared to left. - Labs CBC & Chem 7: 02/13/24 17:26 02/13/24 17:26 Labs: Abnormal Lab Results - Last 24 Hours (Table) 02/14/24 Range/Units 07:16 Triglycerides 157.00 H (0.00-149.00) mg/dL HDL Cholesterol 25.00 L (40.00-60.00) mg/dL Assessment and Plan Assessment: 1. Symptomatic severe left ICA stenosis 2. Acute/subacute CVA 2. Involving left MCA territory 3. Right ICA stenosis 4. Expressive aphasia, likely ischemic stroke 5. Right upper extremity weakness for past 3 months 6. History of hypertension 7. History of hyperlipidemia Plan: 1. Bilateral carotid ultrasound ordered and reviewed 2. Continue PT/OT/ST 3. Patient has been started on a atorvastatin 80 mg at bedtime, aspirin 325 mg daily and Plavix 75 mg daily 4. Will plan for left carotid endarterectomy with patch angioplasty, timing to be determined. Likely outpatient in the next 1 to 2 weeks. 5. Patient will need medical clearance for left carotid endarterectomy 6. Continue with recommendations from neurology Thank you for this consultation, we will continue to follow. The impression and plan of care has been dictated as directed. Dr. Calzada I performed a history and examination of this patient, discussed the same with the dictator. I agree with the dictator's note ,documented as a scribe. Any additional findings or plans will be noted.
--- NOTE | 2024-02-15 11:54 | P.EN ---
medically stable to proceed for carotid endarterectomy
--- NOTE | 2024-02-15 13:31 | P.PN ---
Subjective Progress Note Date: 02/15/24 I am following up with patient and per his who is at bedside his speech is improving but not resolved. Otherwise denies of any new neurological issues. Objective - Vital Signs Vital signs: Vital Signs Temp 98.7 F 02/15/24 12:00 Pulse 98 02/15/24 12:00 Resp 18 02/15/24 12:00 BP 150/91 02/15/24 12:00 Pulse Ox 98 02/15/24 12:06 FiO2 Intake & Output 02/14/24 02/15/24 02/15/24 18:59 06:59 18:59 Intake Total 10 Balance 10 Weight 89 kg Intake: IV 10 Invasive Line 1 10 Other: Voiding Method Toilet Toilet # Voids 1 - Exam GENERAL: The patient is sitting in a recliner chair and is not in acute distress. Carotid: Has bruit over bilateral. NEUROLOGICAL: Higher mental function: The patient is awake, alert, oriented to self, place and time. Patient is following commands. Has expressive aphasia. No neglect. Cranial nerves: The pupils are round, equal and reactive to light and accommodation. Visual hess are full to confrontation throughout. Extraocular movement is intact no nystagmus is noted. Facial sensation is normal to touch throughout. The facial strength is normal throughout. Hearing is normal b ilaterally to hand rub. Tongue is midline and moved [id number] without any difficulty. No dysarthria is noted. Shoulder shrug is normal bilaterally. Motor: The strength is 5 over 5 throughout. Normal tone and bulk. Cerebellum: Normal finger to nose heel to delacruz bilaterally. Sensation: Sensation is normal to touch throughout. Reflexes (right/left): 2+ throughout. Plantars are downgoing bilaterally. Some of the workup during this hospital visit consisted of: Lipid Panel is triglyceride 157, cholesterol is 119, LDL 62 and HDL is 25. Hemoglobin A1c is 5.8. Urine drug screen is nondetected. CT of the head as there appears to be some mild white matter changes within the left lauren radiata could be subcortical ischemic change of indeterminate age. I personally reviewed the CT and I feel the patient has acute to subacute changes over the left MCA territory. CT angiography of the head and neck is reported as critical stenosis in the left internal carotid artery origin. Severe narrowing in the right internal carotid artery origin. Additional area of moderate narrowing of the proximal common carotid vessel. No severe stenosis [place]. Carotid duplex is reported as marked amount of atherosclerotic plaque seen in the bilateral carotid bulb and bilateral ICA with a left greater than right. Near occlusion on the left ICA at its origin. Greater than 70% stenosis of the right ICA at its origin. Finding corresponds to the CT angiography from yesterday 2D echo is reported as normal left ventricle systolic function. MRI Brain: Acute/subacute CA predominatley involving the left MCA territory predominately involving the cortex with evidence of laminar necrosis. - Labs CBC & Chem 7: 02/13/24 17:26 02/13/24 17:26 Assessment and Plan Assessment: This is a 68-year-old gentleman with underlying history of hypertension, hyperlipidemia who presented emergency department on 02/13/2024 because of expressive aphasia since 02/08/2024 patient refused to have his symptoms be addressed. Also about 3-month ago patient had episode of right hand weakness and followed up with his PCP and it was felt he had a pinched nerve. Acute to subacute ischemic stroke (left MCA territory). Symptoms of expressive aphasia. Etiology of stroke is likely due to symptomatic left internal carotid artery stenosis. Had a recent right hand weakness about 3months ago and also due to symptomatic left ICA. Severe bilateral ICA stenosis worse on the left than the right Hypertension Hyperlipidemia Plan: Patient to continue ASA 325mg daily and Plavix 75mg daily. Prior to this was not on antiplatletes. Continue Lipitor 80 mg nightly for secondary stroke prophylaxis Continue neurochecks Cardiac monitoring PT OT and DIRECTOR MICROBIOLOGY are consulted Vascular surgery team is consulted and recommend left carotid endarterectomy with patch angioplasty likely as outpatient within 1-2 weeks. From neurological perspective, recommend as inpatient since patient had two events in the last 3 months (one with right hand weakness and within last one week has expressive aphasia) to avoid further stroke episodes. I spoke with patient and his and notified them that surgery does have complication such as stroke and they would like to pursue with intervention. Recommend systolic blood pressure to be 140-160 at this time. Will defer the rest of the medical management to primary and other specialist For DVT prophylaxis On Lovenox. The plan is discussed with patient, his spouse and primary attending. Will continue to follow. Time with Patient: Less than 30
[2024-02-15 15:44] VITALS: BP 164/90; PULSE 93; TEMP 97.8
--- NOTE | 2024-02-15 18:50 | P.DS ---
Providers Date of admission: 02/13/24 18:34 Expected date of discharge: 02/15/24 Attending physician: Trip Munguia Consults: 02/13/24 18:33 Consult Physician Routine Consulting Provider: Lawrence Wheatley Consult Reason/Comments: cva Do you want consulting provider notified?: Yes 02/14/24 08:24 Consult Physician Urgent Consulting Provider: Jack Ríos Consult Reason/Comments: carotid stenosis Do you want consulting provider notified?: Yes Primary care physician: [facility] Course: Chief Complaint: Trouble speaking This is a pleasant 68-year-old patient, follows with Kennedi Cheatham with Dr. Friend. Chronic stable medical conditions include hypertension, hyperlipidemia. About 6 days ago that is on patient noted that having trouble finding words while speaking. As her son was getting she decided attend a wedding. Finally showed up at his family doctor's office yesterday who sent the patient down to the ER. Finding what has improved some since that day. No change in swallowing no headache no change in vision or any other focal weakness. February 14: Expressive dysphagia better. at the bedside. She has noticed a change. Spoke to Dr. WHEATLEY from neurology. He would prefer the current surgery to be done while inpatient. Dr. Calzada called me that her team and herself has nothing available until next Monday. Therefore patient is being discharged on dual antiplatelet agents. This was conveyed to the patient. Because blood pressure running on the higher side. Dose of Cozaar has been doubled to 100 mg starting tonight. Also chlorthalidone is being added. 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 No smoking alcohol. . Physical examination: VITAL SIGNS: 97.8, 93, 18, 164/90, 99% room air GENERAL: BMI 29.6, reclining bed awake comfortable. EYES: Pupils equal. Conjunctiva dawit l. HEENT: External appearance of nose and ears normal, oral cavity grossly normal. NECK: JVD not raised; masses not palpable. HEART: First and second heart sounds are normal; no edema. LUNGS: Respiratory rate normal; clear to auscultation. ABDOMEN: Soft, nontender, liver spleen not palpable, no masses palpable. PSYCH: Alert and oriented x3; mood and affect dawit l. MUSCULOSKELETAL:No Clubbing/cyanosis;muscles-grossly intact NEUROLOGICAL: Cranial nerves grossly intact; no facial asymmetry, power and sensation grossly intact. Trouble finding words when speaking. Content is fine otherwise.: Speech improving INVESTIGATIONS, reviewed in the clinical context: MRI brain: CVA involving the left MCA territory predominantly involving the cortex with evidence of laminar necrosis. LDL 62.6 February 13, 2024: White count 5.7 hemoglobin 13.9 platelets 265 sodium 141 potassium 4.2 BUN 16 creatinine 1.21 Troponin I less than 0.012 LDL 62.6 Urine drug screen: Negative EKG tracing personally reviewed by me-normal sinus rhythm. Chest x-ray film personally reviewed by me-unremarkable. Borderline cardiomegaly CT brain without contrast: Some white matter changes mild in the left lauren radiata area. Could be subcortical ischemic changes of indeterminate age. CT angiogram of head and neck: Critical stenosis left internal carotid artery at the origin. Severe narrowing right internal carotid artery origin. Additional areas of moderate narrowing of the proximal common carotid vessels. Carotid Doppler: Moderate amount of atherosclerotic plaque seen within the bilateral carotid bulbs and bilateral ICA with left greater than right. Near occlusion of the left ICA at its origin. Greater than 70% stenosis of the right ICA at its origin. Assessment and plan: -Subacute stroke affecting the speech area with symptoms starting 5 days prior to presentation. Expressive dysphasia: Improving Aspirin. Plavix. Lipitor. Neurology following. Neurochecks. MRI results as above -Critical stenosis left internal carotid artery at the region more than 90%. Right internal carotid artery more than 70%. Seen by Dr. Calzada. And next available schedule is next Monday.. -Essential hypertension Cozaar 100 mg nightly. Chlorthalidone 25 mg/day -Hyperlipidemia Lipitor 80 mg nightly -Acute expressive dysarthria from stroke Speech therapy following -DNR Disposition: Home Past Medical History Past Medical History: Hyperlipidemia, Hypertension History of Any Multi-Drug Resistant Organisms: None Reported Past Surgical History: Cholecystectomy Past Psychological History: No Psychological Hx Reported Smoking Status: Never smoker Past Alcohol Use History: None Reported Past Drug Use History: None Reported Plan - Discharge Summary Discharge Rx Participant: Yes New Discharge Prescriptions: New Aspirin 325 mg PO DAILY tab Losartan Potassium [Cozaar] 100 mg PO HS #30 tab Clopidogrel [Plavix] 75 mg PO DAILY #30 tab Chlorthalidone 25 mg PO DAILY #30 tablet Atorvastatin [Lipitor] 80 mg PO HS #30 tab Discontinued Rosuvastatin [Crestor] 20 mg PO DAILY Losartan [Cozaar] 50 mg PO DAILY amLODIPine [Norvasc] 5 mg PO DIRECTED Discharge Medication List Aspirin 325 mg PO DAILY tab 02/15/24 [Rx] Atorvastatin [Lipitor] 80 mg PO HS #30 tab 02/15/24 [Rx] Chlorthalidone 25 mg PO DAILY #30 tablet 02/15/24 [Rx] Clopidogrel [Plavix] 75 mg PO DAILY #30 tab 02/15/24 [Rx] Losartan Potassium [Cozaar] 100 mg PO HS #30 tab 02/15/24 [Rx] Follow up Appointment(s)/Referral(s): Jack Friend MD [Primary Care Provider] - 1-2 days (please call and make appointment, office did not answer ) Maria L Calzada DO [STAFF PHYSICIAN] - 1 Week (office did not answer please call and make appointment. procedure scheduled for 02/23/24 at 0730) Patient Instructions/Handouts: Clopidogrel (By mouth), Ischemic Stroke (DC), Carotid Endarterectomy (DC) Discharge Disposition: HOME SELF-CARE
== END 2024-02-15 17:21 | disposition home or self-care (01) | DRG 66 ==
LOC: EC 16:32 → 3SCARD 18:34
PROVIDERS: ADMIT Hospitalist; ATTEND Hospitalist
DX: I63.233 Cerebral infarction due to unspecified occlusion or stenosis of bilateral carotid arteries (principal); R47.01 Aphasia; E11.9 Type 2 diabetes mellitus without complications; I10 Essential (primary) hypertension; Z66 Do not resuscitate; E78.5 Hyperlipidemia, unspecified; R29.703 NIHSS score 3; R13.10 Dysphagia, unspecified; R47.02 Dysphasia; R47.1 Dysarthria and anarthria; R53.1 Weakness; Z79.02 Long term (current) use of antithrombotics/antiplatelets; Z79.82 Long term (current) use of aspirin; Z79.899 Other long term (current) drug therapy
CPT/HCPCS: 36415; 70450; 70496; 70498; 70551; 71046; 80053; 80061; 80306; 82550; 83036; 84443; 84484; 85025; 85610; 85730; 93005; 93306; 93880; 94760; 96360; 96361; 99291

== ENCOUNTER 2024-02-23 05:37 | Inpatient (IN) | payer BC, MEDICARE ==
[2024-02-23] MEDS: LACTATED RINGERS 1,000 ML IV SCH (06:33)
[2024-02-23] MEDS: ONDANSETRON 4 MG/2 ML VIAL IVP ONE (06:34)
[2024-02-23] MEDS: DEXAMETHASONE SOD PHOSPHATE 4 MG/ML 1 ML VIAL IV ONE (06:34)
[2024-02-23] MEDS: IV FLUID CONTINUATION 1,000 ML IV ONE ×3 (06:37→14:24)
[2024-02-23] MEDS: MIDAZOLAM 2 MG/2 ML VIAL IV PRN (06:51)
[2024-02-23] MEDS ORDERED: NEOSTIGMINE 1 MG/ML 10 ML VIAL ONE (07:25)
[2024-02-23] MEDS ORDERED: LIDOCAINE 4% LTA KIT (4 ML) TOPICAL ONE (07:25)
[2024-02-23] MEDS ORDERED: ROCURONIUM 10 MG/ML (5 ML VIAL) IV ONE (07:25)
[2024-02-23] MEDS ORDERED: PHENYLEPHRINE-0.9% NACL SYG 1,000 MCG/10 ML SYRINGE ONE (07:25)
[2024-02-23] MEDS ORDERED: PROPOFOL 10 MG/ML 20 ML VIAL IV ONE (07:25)
[2024-02-23] MEDS ORDERED: LABETALOL 5 MG/ML VIAL MDV ONE (07:25)
[2024-02-23] MEDS ORDERED: fentaNYL (PF) 50 MCG/ML 2 ML AMP ONE (07:25)
[2024-02-23] MEDS ORDERED: PHENYLEPHRINE 10 MG/ML VIAL ONE (07:25)
[2024-02-23] MEDS ORDERED: ePHEDrine 50 MG/ML 1 ML VIAL ONE (07:25)
[2024-02-23] MEDS ORDERED: GLYCOPYRROLATE 0.2 MG/ML 2 ML VIAL ONE (07:25)
[2024-02-23] MEDS ORDERED: SUCCINYLCHOLINE CHLORIDE 200 MG/10 ML VIAL IV ONE (07:25)
[2024-02-23] MEDS ORDERED: PROTAMINE SULFATE 10 MG/ML 5 ML VIAL ONE (07:25)
[2024-02-23] MEDS ORDERED: LIDOCAINE 1% INJ 10MG/ML (20 ML MDV) ONE (07:25)
[2024-02-23] MEDS ORDERED: HEPARIN SODIUM,PORCINE 10,000 UNIT/ML 1 ML VIAL ONE (07:25)
--- NOTE | 2024-02-23 07:27 | P.HPIHPCON ---
History of Present Illness H&P Date: 02/23/24 Patient is a 68-year-old male in today for left carotid endarterectomy. He has very recently been admitted for symptoms of this including aphasia and some weakness, that has improved, he still has some degree of word finding issues but overall is improved. He presents today for surgical intervention. He has been taking his medications as ordered. He denies any further symptoms since being in the hospital earlier this week. Consent for Procedure: I have explained the operation/procedure to the patient, including the risks, benefits, side effects, alternative therapies (including not receiving the proposed treatment or service), the likelihood of the patient achieving his/her goals, and potential recuperation problems for the procedure/sedation/analgesia, as well as any blood products, if indicated. I also explained to the patient the risks, benefits and side effects of the alternatives, as well as the risks related to not receiving the proposed procedure, care, treatment, or services. Past Medical History Past Medical History: CVA/TIA, Hyperlipidemia, Hypertension Additional Past Medical History / Comment(s): ischemic CVA 02/08/24 w/ expressive dysphasia which is improving, bilat. carotid stenosis History of Any Multi-Drug Resistant Organisms: None Reported Past Surgical History: Appendectomy, Cholecystectomy Past Anesthesia/Blood Transfusion Reactions: No Reported Reaction Smoking Status: Never smoker - Past Family History Father Family Medical History: Myocardial Infarction ([place]) Additional Family Medical History / Comment(s): age 80 of [place] Medications and Allergies Home Medications Medication Instructions Recorded Confirmed Type Aspirin 325 mg PO DAILY tab 02/15/24 02/23/24 Rx Atorvastatin [Lipitor] 80 mg PO HS #30 tab 02/15/24 02/23/24 Rx Chlorthalidone 25 mg PO DAILY #30 tablet 02/15/24 02/23/24 Rx Clopidogrel [Plavix] 75 mg PO DAILY #30 tab 02/15/24 02/23/24 Rx Losartan Potassium [Cozaar] 100 mg PO HS #30 tab 02/15/24 02/23/24 Rx Allergies Allergy/AdvReac Type Severity Reaction Status Date / Time No Known Allergies Allergy Verified 02/23/24 05:53 Surgical - Exam Vital Signs Temp Pulse Resp BP Pulse Ox 97.0 F L 76 18 145/86 100 02/23/24 06:00 02/23/24 06:00 02/23/24 06:00 02/23/24 06:00 02/23/24 06:00 General Is a pleasant cooperative male in no acute distress. Heart appears regular. Lungs are clear. No significant unilateral weakness. Cranial nerve II to XII grossly intact. Assessment and Plan Assessment: Symptomatic left carotid stenosis Right ICA stenosis Hypertension Hyperlipidemia Plan: Plan for left carotid endarterectomy today, questions were answered. Risks and benefits discussed. Patient and seemingly understand and willing to proceed.
[2024-02-23] MEDS: LIDOCAINE 1% INJ 10MG/ML (20 ML MDV) SQ ONE (08:05)
[2024-02-23] MEDS: THROMBIN (BOVINE) 5,000 UNIT VIAL TOPICAL ONE (08:05)
[2024-02-23] MEDS: HEPARIN SODIUM (1,000 UNIT/ML) 2,000 UNIT in SODIUM CHLORIDE 0.9% 1,000 ML IRRIGATION ONE (08:06)
[2024-02-23] MEDS: ceFAZolin 2 GM in SODIUM CHLORIDE 0.9% 500 ML 500 ML IRRIGATION ONE (08:07)
[2024-02-23] MEDS: LACTATED RINGERS 1,000 ML IV ONE (10:56)
[2024-02-23] MEDS ORDERED: ACETAMINOPHEN TAB 325 MG TAB PO PRN (11:30)
[2024-02-23] MEDS ORDERED: HYDROcodone/APAP 5-325MG 1 EACH TAB PO PRN (11:30)
[2024-02-23] MEDS ORDERED: MORPHINE SULFATE 2 MG/ML SYRINGE IVP PRN (11:30)
[2024-02-23] MEDS ORDERED: BENZOCAINE/MENTHOL LOZENG 1 EACH LOZENGE MUCOUS MEM PRN (11:30)
--- NOTE | 2024-02-23 11:30 | P.OP ---
Date of Procedure: 02/23/24 Description of Procedure: Preoperative Diagnosis: High-grade symptomatic left internal carotid artery stenosis Postoperative Diagnosis: Same Procedure: Left carotid endarterectomy with patch angioplasty Anesthesia: GET Surgeon: Maria L Calzada DO Estimated Blood Loss (ml): 75 IV Fluids: See records Urine Output: 300 cc Specimen: Left carotid plaque, left cervical nodes Condition: stable Disposition: PACU Findings and indications: Patient is a 68-year-old male who came in last week with issues of aphasia and right lower extremity weakness that have improved significantly. He was initiated on dual antiplatelet therapy and recommended to undergo surgical intervention. He is scheduled today for carotid endarterectomy and patch angioplasty. Risk and benefits were discussed including but not limited to bleeding, infection, stroke, cardiopulmonary concerns. He has seemingly understood and willing to proceed. Procedure in detail: After written informed consent was obtained the patient risks benefits and competitions were described the patient is brought to the operative suite and laid in a supine position. The area of the neck was prepped and draped in usual sterile fashion after appropriate anesthetic was performed per the anesthesiologist. A timeout was performed in normal fashion antibiotics were administered prior to incision. An oblique incision was then created just anterior to the sternocleidomastoid musculature with a 10 blade scalpel and dissection was carried down to the carotid sheath. There was significant adhesion of the sternocleidomastoid and the subcutaneous tissue. The carotid sheath was then entered after facial vein was located and suture ligated in normal fashion. There was significant fatty tissue encompassing the carotid at its base. The common carotid was encircled. The external carotid artery was encircled. Due to the significant amount of fusions and high lesion, the patient had been heparinized and once ACT's were appropriate, the common and external were drawn to close to minimize antegrade flow at this time. The cerebral oximetry was monitored and found to be adequate. Further meticulous dissection of the internal carotid was performed and it was dissected circumferentially and controlled with vessel loops. The hypoglossal and vagus nerve were identified and spared through dissection. After appropriate control, Arteriotomy was then created with 11 blade scalpel and extended with Arevalo Major scissors. Again cerebral oximetry showed no significant drop requiring a shunt.. An endarterectomy was then performed with a [place] elevator. The plaque was transected proximally. At the cephalad portion, there was significant hyperplasia and very firm plaquing that was unable to be lifted safely therefore the decision was made to extend slightly the arteriotomy and 7-0 sutures were placed to decrease any risk of flap. The area was copiously irrigated with heparinized saline and all free debris was removed. A 0.8 x 8 cm bovine pericardial patch was then chosen and patch angioplasty was performed with 6-0 Prolene suture in a running fashion. Prior to last sutures being placed the inflow was released flushing any free debris out of the patch. This was reclamped and the internal carotid artery was released revealing decent flow and was once again reclamped. Final sutures were placed and secured. The external carotid and superior thyroid artery were then released followed by the common carotid artery to allow any free debris to be flushed into the external system. Internal carotid artery control was then released. Good pulsatile flow was noted through the patch and a Doppler was utilized demonstrating good brisk flow into the internal, external carotid arteries without any signs of obstruction. Hemostasis was then assured with interrupted sutures of 6-0 Prolene as well as thrombin and Gelfoam as well as Surgicel. A 10-[place] LISE drain was then placed in normal fashion and secured with 3-0 nylon suture. There was bleeding from this channel, enough so that the drain was upsized to a [address]. The incision was then closed in a multilayer fashion after hemostasis was assured. The skin was then cleansed and dressings were placed. Patient tolerated the procedure well and was following commands and moving all extremities. Patient was then sent to PACU for recovery.
[2024-02-23] MEDS: HYDROmorphone 0.5 MG/0.5 ML SYRINGE IVP PRN (11:57)
[2024-02-23 14:53] VITALS: RESP 18
[2024-02-23] MEDS: SODIUM CHLORIDE 0.9% 500 ML 500 ML IV ONE (16:10)
[2024-02-23] MEDS: HEPARIN SODIUM,PORCINE 5,000 UNIT/ML 1 ML VIAL SQ SCH (16:11)
--- NOTE | 2024-02-23 16:23 | P.CONS ---
History of Present Illness - Reason for Consult Consult date: 02/23/24 Medical management Requesting physician: Maria L Calzada - Chief Complaint Carotid endarterectomy - History of Present Illness This is a pleasant 68-year-old patient, follows with Kennedi Cheatham with Dr. Friend. Chronic stable medical conditions include hypertension, hyperlipidemia. Patient was in the hospital recently from February 13 through February 14. Had presented with 6 days prior to admission t having trouble finding words while speaking.. MRI brain did confirm: Involvement of the left MCA territory predominantly involving the cortex with evidence of laminar necrosis. And CT angiogram showed critical stenosis of the left internal carotid artery. Also 70% stenosis of right ICA at its origin. Patient seen by vascular Dr. Calzada. And discharged to follow-up for surgery. Patient today is undergone left carotid endarterectomy with patch angioplasty. Postprocedure some hematoma with pressure dressing over the same site. Also score of LISE drain in place. Blood pressure stable. Postprocedure patient was seen in the recovery room. Otherwise feeling comfortable.. 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 No smoking alcohol. . Physical examination: VITAL SIGNS: 99, 18, 133 of 81, 97% on 3 L GENERAL: BMI 29.4, reclining bed awake comfortable. EYES: Pupils equal. Conjunctiva dawit l. HEENT: External appearance of nose and ears normal, oral cavity grossly normal.. Dressing over the left neck. LISE drain in place. NECK: JVD not raised; masses not palpable. HEART: First and second heart sounds are normal; no edema. LUNGS: Respiratory rate normal; clear to auscultation. ABDOMEN: Soft, nontender, liver spleen not palpable, no masses palpable. PSYCH: Alert and oriented x3; mood and affect dawit l. MUSCULOSKELETAL:No Clubbing/cyanosis;muscles-grossly intact NEUROLOGICAL: Cranial nerves grossly intact; no facial asymmetry, power and sensation grossly intact. Speech nearly normal LYMPHATICS: No lymph nodes palpable in the axilla and neck INVESTIGATIONS, reviewed in the clinical context: Investigations from February 13 and MRI brain: CVA involving the left MCA territory predominantly involving the cortex with evidence of laminar necrosis. LDL 62.6 February 13, 2024: White count 5.7 hemoglobin 13.9 platelets 265 sodium 141 potassium 4.2 BUN 16 creatinine 1.21 Troponin I less than 0.012 LDL 62.6 Urine drug screen: Negative EKG tracing personally reviewed by me-normal sinus rhythm. Chest x-ray film personally reviewed by me-unremarkable. Borderline cardiomegaly CT brain without contrast: Some white matter changes mild in the left lauren radiata area. Could be subcortical ischemic changes of indeterminate age. CT angiogram of head and neck: Critical stenosis left internal carotid artery at the origin. Severe narrowing right internal carotid artery origin. Additional areas of moderate narrowing of the proximal common carotid vessels. Carotid Doppler: Moderate amount of atherosclerotic plaque seen within the bilateral carotid bulbs and bilateral ICA with left greater than right. Near o cclusion of the left ICA at its origin. Greater than 70% stenosis of the right ICA at its origin. Assessment and plan: -Left carotid endarterectomy with patch angioplasty for critical stenosis left internal [place] artery at the origin more than 90%. Has a slight hematoma with pressure dressing. LISE drain. Aspirin and Plavix have been resumed by Dr. Calzada -Subacute stroke affecting the speech area with recent stroke expressive dysphasia: Was admitted on February 12 through February 13. Aspirin. Plavix. Lipitor. MRI results as above -Right internal carotid artery stenosis greater than 70% Follow outpatient with Dr. Calzada -Essential hypertension Cozaar 100 mg nightly. Chlorthalidone 25 mg/day -Hyperlipidemia Lipitor 80 mg nightly -Acute expressive dysarthria from stroke Speech therapy following -DNR Discussed with patient. Pneumatic stockings Thank you Dr. Calzada Past Medical History Past Medical History: CVA/TIA, Hyperlipidemia, Hypertension Additional Past Medical History / Comment(s): ischemic CVA 02/08/24 w/ expressive dysphasia which is improving, bilat. carotid stenosis History of Any Multi-Drug Resistant Organisms: None Reported Past Surgical History: Appendectomy, Cholecystectomy Past Anesthesia/Blood Transfusion Reactions: No Reported Reaction Smoking Status: Never smoker - Past Family History Father Family Medical History: Myocardial Infarction ([place]) Additional Family Medical History / Comment(s): age 80 of [place] Medications and Allergies Home Medications Medication Instructions Recorded Confirmed Type Aspirin 325 mg PO DAILY tab 02/15/24 02/23/24 Rx Atorvastatin [Lipitor] 80 mg PO HS #30 tab 02/15/24 02/23/24 Rx Chlorthalidone 25 mg PO DAILY #30 tablet 02/15/24 02/23/24 Rx Clopidogrel [Plavix] 75 mg PO DAILY #30 tab 02/15/24 02/23/24 Rx Losartan Potassium [Cozaar] 100 mg PO HS #30 tab 02/15/24 02/23/24 Rx Allergies Allergy/AdvReac Type Severity Reaction Status Date / Time No Known Allergies Allergy Verified 02/23/24 05:53 Physical Exam Vitals: Vital Signs Temp Pulse Pulse Resp BP BP BP 02/23/24 14:45 99 18 133/81 02/23/24 14:30 98 15 141/79 02/23/24 14:15 96 15 143/79 02/23/24 14:00 100 17 145/92 02/23/24 13:45 90 16 172/66 135/84 02/23/24 13:30 90 16 169/62 143/80 02/23/24 13:15 95 16 173/63 134/82 02/23/24 13:00 85 16 167/63 134/82 02/23/24 12:45 88 17 171/62 130/75 02/23/24 12:30 74 15 157/61 149/83 02/23/24 12:15 70 16 158/60 02/23/24 12:00 74 17 159/59 02/23/24 11:45 81 18 158/63 02/23/24 11:27 80 17 162/65 02/23/24 11:12 97.2 F L 96 14 130/55 02/23/24 07:07 80 18 117/79 02/23/24 06:00 97.0 F L 76 18 145/86 Pulse Ox 02/23/24 14:45 97 02/23/24 14:30 96 02/23/24 14:15 99 02/23/24 14:00 98 02/23/24 13:45 99 02/23/24 13:30 96 02/23/24 13:15 94 L 02/23/24 13:00 97 02/23/24 12:45 99 02/23/24 12:30 96 02/23/24 12:15 99 10/04/24 12:00 100 02/23/24 11:45 98 02/23/24 11:27 96 02/23/24 11:12 96 02/23/24 07:07 97 02/23/24 06:00 100 Intake and Output 02/23/24 02/23/24 02/23/24 06:59 14:59 22:59 Intake Total 200 2952 Output Total 675 Balance 200 2277 Intake: IV 200 2952 Output: Urine 600 Estimated Blood Loss 75 Other: Weight 87.8 kg
[2024-02-23] MEDS: SODIUM CHLORIDE 0.9% 1,000 ML IV SCH (22:03)
[2024-02-23] MEDS: ATORVASTATIN 80 MG TAB PO SCH (22:03)
[2024-02-23] MEDS: LOSARTAN 50 MG TAB PO SCH (22:03)
[2024-02-24 03:18] VITALS: TEMP 97.9
[2024-02-24] MEDS: MAG HYDROX/AL HYDROX/SIMETH 30 ML CUP PO PRN (03:53)
[2024-02-24 07:01] LABS: Basophils % (A) 0 %; Eosinophils % (A) 1 %; HCT 34.2 % (39.0-53.0); Lymphocytes # (A) 1.4 k/uL (1.0-4.8); Lymphocytes % (A) 20 %; MCH 29.4 pg (25.0-35.0); MCHC 32.1 g/dL (31.0-37.0); MCV 91.7 fL (80.0-100.0); Mean Platelet Volume 6.8; Monocytes # (A) 0.5 k/uL (0-1.0); Monocytes % (A) 7 %; Neutrophils # (A) 5.2 k/uL (1.3-7.7); Neutrophils % (A) 72 %; Platelet Count 280 k/uL (150-450); RBC 3.73 m/uL (4.30-5.90); RDW 12.4 % (11.5-15.5); WBC 7.2 k/uL (3.8-10.6)
[2024-02-24 07:25] LABS: African American GFR (CKD) 78 (>60 ml/min/1.73 sqM); Anion Gap 6 mmol/L; Blood Urea Nitrogen 14 mg/dL (9-20); Calcium 8.6 mg/dL (8.4-10.2); Carbon Dioxide 29 mmol/L (22-30); Chloride 103 mmol/L (98-107); Glucose 98 mg/dL (74-99); Non-African American GFR(CKD) 68 (>60 ml/min/1.73 sqM); Potassium 3.9 mmol/L (3.5-5.1); Sodium 138 mmol/L (137-145)
[2024-02-24] MEDS: ASPIRIN 81 MG PO SCH (09:05)
[2024-02-24] MEDS: CHLORTHALIDONE 25 MG TAB PO SCH (09:05)
[2024-02-24] MEDS: CLOPIDOGREL 75 MG TAB PO SCH (09:05)
--- NOTE | 2024-02-24 09:07 | P.PN ---
Subjective Progress Note Date: 02/24/24 (\) Principal diagnosis: carotid stenosis Patient seen and examined. Doing well overnight. Pain controlled. Blood pressure stable. Minimal output in LISE drain. No lateralizing symptoms. Objective - Vital Signs Vital signs: Vital Signs Temp 97.9 F 02/24/24 03:17 Pulse 95 02/24/24 03:17 Resp 18 02/24/24 03:17 BP 142/52 02/24/24 03:17 Pulse Ox 98 02/24/24 03:17 FiO2 Intake & Output 02/23/24 02/24/24 02/24/24 18:59 06:59 18:59 Intake Total 3070 240 Output Total 675 1800 Balance 2395 -1800 240 Weight 87.8 kg 87.6 kg Intake: IV 2952 Oral 118 240 Output: Urine 600 1800 Estimated Blood Loss 75 Other: Voiding Method Indwelling Catheter - Exam Incision clean, dry and intact No hematoma or sign of infection LISE drain with minimal output No focal deficits, tongue midline, no facial droop - Constitutional General appearance: Present: average body habitus, cooperative - Labs CBC & Chem 7: 02/24/24 06:23 02/24/24 06:19 Labs: Abnormal Lab Results - Last 24 Hours (Table) 02/24/24 Range/Units 06:23 RBC 3.73 L (4.30-5.90) m/uL Hgb 11.0 L (13.0-17.5) gm/dL Hct 34.2 L (39.0-53.0) % Assessment and Plan Assessment: POD 1 L CEA Carotid stenosis Plan: Removed LISE drain today Regular diet Increase activity- ambulate with nursing If tolerates diet, and ambulates then ok for discharge home today.
[2024-02-24 11:49] VITALS: BP 136/67; PULSE 80
--- NOTE | 2024-02-24 17:11 | P.PN ---
Progress Note - Text Progress Note Date: 02/24/24 - Chief Complaint Carotid endarterectomy - History of Present Illness This is a pleasant 68-year-old patient, follows with Kennedi Cheatham with Dr. Friend. Chronic stable medical conditions include hypertension, hyperlipidemia. Patient was in the hospital recently from February 13 through February 14. Had presented with 6 days prior to admission t having trouble finding words while speaking.. MRI brain did confirm: Involvement of the left MCA territory predominantly involving the cortex with evidence of laminar necrosis. And CT angiogram showed critical stenosis of the left internal carotid artery. Also 70% stenosis of right ICA at its origin. Patient seen by vascular Dr. Calzada. And discharged to follow-up for surgery. Patient today is undergone left carotid endarterectomy with patch angioplasty. Postprocedure some hematoma with pressure dressing over the same site. Also score of LISE drain in place. Blood pressure stable. Postprocedure patient was seen in the recovery room. Otherwise feeling comfortable.. February 23: LISE drain removed. Tolerating diet. Did ambulate. at the bedside. Otherwise feeling well. Blood pressure stable. 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 No smoking alcohol. . Physical examination: VITAL SIGNS: 97.9, 80, 18, 136 x 67, 98% room air GENERAL: Up in a chair, comfortable EYES: Pupils equal. Conjunctiva dawit l. HEENT: External appearance of nose and ears normal, oral cavity grossly normal.. Dressing over the left neck. LISE drain-was removed NECK: JVD not raised; masses not palpable. HEART: First and second heart sounds are normal; no edema. LUNGS: Respiratory rate normal; clear to auscultation. ABDOMEN: Soft, nontender, liver spleen not palpable, no masses palpable. PSYCH: Alert and oriented x3; mood and affect dawit l. MUSCULOSKELETAL:No Clubbing/cyanosis;muscles-grossly intact NEUROLOGICAL: Cranial nerves grossly intact; no facial asymmetry, power and sensation grossly intact. Speech nearly normal INVESTIGATIONS, reviewed in the clinical context: February 24, 2024: White count 7.2 hemoglobin 11 platelets 280 potassium 3.9 creatinine 1.13 Investigations from February 13 and MRI brain: CVA involving the left MCA territory predominantly involving the cortex with evidence of laminar necrosis. LDL 62.6 February 13, 2024: White count 5.7 hemoglobin 13.9 platelets 265 sodium 141 potassium 4.2 BUN 16 creatinine 1.21 Troponin I less than 0.012 LDL 62.6 Urine drug screen: Negative EKG tracing personally reviewed by me-normal sinus rhythm. Chest x-ray film personally reviewed by me-unremarkable. Borderline cardiomegaly CT brain without contrast: Some white matter changes mild in the left lauren radiata area. Could be subcortical ischemic changes of indeterminate age. CT angiogram of head and neck: Critical stenosis left internal carotid artery at the origin. Severe narrowing right internal carotid artery origin. Additional areas of moderate narrowing of the proximal common carotid vessels. Carotid Doppler: Moderate amount of atherosclerotic plaque seen within the bilateral carotid bulbs and bilateral ICA with left greater than right. Near occlusion of the left ICA at its origin. Greater than 70% stenosis of the right ICA at its origin. Assessment and plan: -Left carotid endarterectomy with patch angioplasty for critical stenosis left internal Carine artery at the origin more than 90%. Has a slight hematoma with pressure dressing. LISE drain-removed. Aspirin and Plavix have been resumed by Dr. Calzada -Subacute stroke affecting the speech area with recent stroke expressive dysphasia: Was admitted on February 12 through February 13. Aspirin. Plavix. Lipitor. -Right internal carotid artery stenosis greater than 70% Follow outpatient with Dr. Calzada -Essential hypertension Cozaar 100 mg nightly. Chlorthalidone 25 mg/day -Hyperlipidemia Lipitor 80 mg nightly -DNR Cussed with patient and . Postoperative doing well. Follow-up with PCP next week upon discharge. Thank you Dr. Calzada Past Medical History Past Medical History: CVA/TIA, Hyperlipidemia, Hypertension Additional Past Medical History / Comment(s): ischemic CVA 02/08/24 w/ expressive dysphasia which is improving, bilat. carotid stenosis History of Any Multi-Drug Resistant Organisms: None Reported Past Surgical History: Appendectomy, Cholecystectomy Past Anesthesia/Blood Transfusion Reactions: No Reported Reaction Smoking Status: Never smoker
== END 2024-02-24 15:56 | disposition home or self-care (01) | DRG 39 ==
LOC: 2ORMAIN 05:37 → 3SCARD 14:43
PROVIDERS: ADMIT Surgery; ATTEND Surgery
PROC: 03UJ0KZ Supplement Left Common Carotid Artery with Nonautologous Tissue Substitute, Open Approach (ICD-10-PCS; 2024-02-23)
PROC: 03CJ0ZZ Extirpation of Matter from Left Common Carotid Artery, Open Approach (ICD-10-PCS; principal; 2024-02-23 07:30)
DX: I65.23 Occlusion and stenosis of bilateral carotid arteries (principal); I69.321 Dysphasia following cerebral infarction; I69.322 Dysarthria following cerebral infarction; R47.01 Aphasia; G83.11 Monoplegia of lower limb affecting right dominant side; Z66 Do not resuscitate; I11.9 Hypertensive heart disease without heart failure; E78.5 Hyperlipidemia, unspecified; M79.81 Nontraumatic hematoma of soft tissue; Z79.02 Long term (current) use of antithrombotics/antiplatelets; Z79.82 Long term (current) use of aspirin; Z79.899 Other long term (current) drug therapy
CPT/HCPCS: 80048; 85025; 86850; 86900; 86901; 88304; 88305

== ENCOUNTER 2024-05-09 05:37 | Inpatient (IN) | payer BC, MEDICARE ==
[2024-05-09] MEDS ORDERED: MIDAZOLAM 2 MG/2 ML VIAL IV PRN (06:12)
[2024-05-09] MEDS ORDERED: LIDOCAINE 1% (10MG/ML) FOR IV START INTRADERMA PRN (06:12)
[2024-05-09] MEDS ORDERED: HYDROmorphone 0.5 MG/0.5 ML SYRINGE IVP PRN (06:12)
[2024-05-09] MEDS ORDERED: fentaNYL (PF) 50 MCG/ML 2 ML AMP IVP PRN (06:12)
[2024-05-09] MEDS: IV FLUID CONTINUATION 1,000 ML IV ONE ×2 (06:18→13:04)
[2024-05-09] MEDS: LACTATED RINGERS 1,000 ML IV SCH (06:42)
[2024-05-09] MEDS: DEXAMETHASONE SOD PHOSPHATE 4 MG/ML 1 ML VIAL IV ONE (06:53)
[2024-05-09] MEDS: ONDANSETRON 4 MG/2 ML VIAL IVP ONE (06:55)
[2024-05-09] MEDS ORDERED: HEPARIN SODIUM,PORCINE 10,000 UNIT/ML 1 ML VIAL ONE (07:25)
[2024-05-09] MEDS ORDERED: PROTAMINE SULFATE 10 MG/ML 5 ML VIAL ONE (07:25)
[2024-05-09] MEDS ORDERED: ePHEDrine 50 MG/ML 1 ML VIAL ONE (07:25)
[2024-05-09] MEDS ORDERED: SUCCINYLCHOLINE CHLORIDE 200 MG/10 ML VIAL IV ONE (07:25)
[2024-05-09] MEDS ORDERED: fentaNYL (PF) 50 MCG/ML 2 ML AMP ONE (07:25)
[2024-05-09] MEDS ORDERED: ROCURONIUM 10 MG/ML (5 ML VIAL) IV ONE (07:25)
[2024-05-09] MEDS ORDERED: PHENYLEPHRINE 10 MG/ML VIAL ONE (07:25)
[2024-05-09] MEDS ORDERED: NEOSTIGMINE 1 MG/ML 10 ML VIAL ONE (07:25)
[2024-05-09] MEDS ORDERED: PROPOFOL 10 MG/ML 20 ML VIAL IV ONE (07:25)
[2024-05-09] MEDS ORDERED: GLYCOPYRROLATE 0.2 MG/ML 2 ML VIAL ONE (07:25)
[2024-05-09] MEDS ORDERED: NITROGLYCERIN-D5W PMX 50 MG/250 ML BOTTLE IV ONE (07:25)
[2024-05-09] MEDS ORDERED: LABETALOL 5 MG/ML VIAL MDV ONE (07:25)
[2024-05-09] MEDS: HEPARIN SODIUM (1,000 UNIT/ML) 2,000 UNIT in SODIUM CHLORIDE 0.9% 1,000 ML IRRIGATION ONE (07:30)
[2024-05-09] MEDS: ceFAZolin 2 GM in SODIUM CHLORIDE 0.9% 500 ML 500 ML IRRIGATION ONE (07:30)
[2024-05-09] MEDS: LIDOCAINE 1% INJ 10MG/ML (20 ML MDV) SQ ONE (08:06)
[2024-05-09] MEDS ORDERED: MORPHINE SULFATE 2 MG/ML SYRINGE IVP PRN (11:15)
[2024-05-09] MEDS ORDERED: ACETAMINOPHEN TAB 325 MG TAB PO PRN (11:15)
[2024-05-09] MEDS ORDERED: HYDROcodone/APAP 5-325MG 1 EACH TAB PO PRN (11:15)
[2024-05-09] MEDS ORDERED: BENZOCAINE/MENTHOL LOZENG 1 EACH LOZENGE MUCOUS MEM PRN (11:15)
--- NOTE | 2024-05-09 11:17 | P.OP ---
Date of Procedure: 05/09/24 Description of Procedure: Preoperative Diagnosis: Right internal carotid artery stenosis Postoperative Diagnosis: Same Procedure: Right carotid endarterectomy with patch angioplasty Anesthesia: GET Surgeon: Maria L Calzada DO Estimated Blood Loss (ml): 75 IV Fluids: See records Urine Output: See records Specimen: Right carotid plaque, right cervical lymph nodes Condition: stable Disposition: PACU Findings and indications: Patient is a 68-year-old male with high-grade internal carotid artery stenosis on the right. He previously underwent a left carotid endarterectomy and patch angioplasty was tolerated well. The outside was symptomatic. The site is high-grade therefore due to this and his age he is recommended undergo carotid endarterectomy. Risks and benefits were discussed. He seemingly understood and was willing to proceed. Procedure in detail: After written informed consent was obtained the patient risks benefits and competitions were described the patient is brought to the operative suite and laid in a supine position. The area of the neck was prepped and draped in usual sterile fashion after appropriate anesthetic was performed per the anesthesiologist. A timeout was performed in normal fashion antibiotics were administered prior to incision. An oblique incision was then created just anterior to the sternocleidomastoid musculature with a 10 blade scalpel and dissection was carried down to the carotid sheath. The carotid sheath was then entered after facial vein was l ocated and suture ligated in normal fashion. The common carotid, internal carotid, external carotid arteries were located and dissected free in a meticulous fashion circumferentially and controlled with vessel loops. It was difficult to visualize the superior thyroid artery at this level. Attention was then placed to locating the vagus nerve as well as hypoglossal nerve which were both spared. Noted to fully dissect the area of the disease at the internal carotid artery, more cephalad incision was dissected. There was a crossing vein that was ligated with 3-0 silk ties. There was found to be a soft area of the internal carotid artery for appropriate clamping. The vessel loop was placed in this level. Once controlled, patient was administered heparin and followed with ACTs for appropriate heparinization. Once ACT was appropriate, the proximal and distal aspects of the dissection were then controlled with vascular clamps. Arteriotomy was then created with 11 blade scalpel and extended with Arevalo Major scissors. Utilizing pressure tubing stump pressures were obtained and were. No shunt was required. An endarterectomy was then performed with a [place] elevator. The plaque was transected proximally and then feathered at the distal aspect of the internal carotid artery and removed. The area was copiously irrigated with heparinized saline and all free debris was removed. A 0.8 x 8 cm bovine pericardial patch was then chosen and patch angioplasty was performed with 6-0 Prolene suture in a running fashion. Prior to last sutures being placed the inflow was released flushing any free debris out of the patch. This was reclamped and the internal carotid artery was released revealing good brisk flow and was once again reclamped. The external carotid and superior th yroid artery were then released followed by the common carotid artery to allow any free debris to be flushed into the external system. Final sutures were placed and secured. Internal carotid artery control was then released. Good pulsatile flow was noted through the patch and a Doppler was utilized demonstrating good brisk flow into the internal, external carotid arteries without any signs of obstruction. Hemostasis was then assured with interrupted sutures of 6-0 Prolene as well as thrombin and Gelfoam. A 10-[place] LISE drain was then placed in normal fashion and secured with 3-0 nylon suture. The incision was then closed in a multilayer fashion after hemostasis was assured. The skin was then cleansed and dressings were placed. Patient tolerated the procedure well and was following commands and moving all extremities. Patient was then sent to PACU for recovery.
[2024-05-09] MEDS: hydrALAZINE HCL 20 MG/ML 1 ML VIAL IVP STA (11:41)
[2024-05-09] MEDS: METOPROLOL TARTRATE 5 MG/5 ML VIAL IVP STA (12:03)
[2024-05-09] MEDS: LABETALOL SYRINGE 5 MG/ML (4 ML SYR) IVP STA (12:13)
[2024-05-09] MEDS: NITROGLYCERIN-D5W PMX 50 MG in DEXTROSE/WATER 1 250ML.BAG IV SCH (13:55)
[2024-05-09 15:41] LABS: Glucose,Whole Blood 121 mg/dL (70-110)
--- NOTE | 2024-05-09 17:10 | P.ANPRN ---
Procedure Note - Anesthesia - Invasive Line Left Arterial Line Time Out Performed: Yes Date of Procedure: 05/09/24 Time of Procedure: 07:17 Location of Patient: PreOp Preparation: Sterile Prep, Sterile Dressing Arterial Line Location: Radial Ultrasound Used: No Purpose - Visualization and Identification of Vasculature: No Image Stored and Saved: No Narrative: Invasive line placement per sterile protocol utilized.
[2024-05-09] MEDS: HEPARIN SODIUM,PORCINE 5,000 UNIT/ML 1 ML VIAL SQ SCH (18:05)
--- NOTE | 2024-05-09 19:45 | P.CONS ---
History of Present Illness - Reason for Consult Consult date: 05/09/24 Medical management Requesting physician: Maria L Calzada - Chief Complaint Right carotid surgery - History of Present Illness This is a pleasant 68-year-old patient, follows with Angel Raphael with Dr. Friend. Chronic stable medical conditions include hypertension, hyperlipidemia. Patient was in the hospital recently from February 13 through February 15 2024. Had presented with 6 days prior to admission t having trouble finding words while speaking.. MRI brain did confirm: Involvement of the left MCA territory predominantly involving the cortex with evidence of laminar necrosis. And CT angiogram showed critical stenosis of the left internal carotid artery. Also 70% stenosis of right ICA at its origin. Patient seen by vascular Dr. Calzada. And discharged to follow-up for surgery. February 23, 2024: Underwent left carotid endarterectomy.. Today, patient seen the ICU. Underwent right carotid endarterectomy with patch angioplasty by Dr. Calzada. Estimated blood loss 75. Patient stayed at baseline prior to surgery has slight s residual dysarthria and slight clumsiness of the right arm. Otherwise doing well. 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 . Physical examination: VITAL SIGNS: 110, 15, 117 x 56, 92% GENERAL: Reclining in bed comfortable EYES: Pupils equal. Conjunctiva dawit l. HEENT: External appearance of nose and ears normal, oral cavity grossly normal.. Dressing over the right neck NECK: JVD not raised; masses not palpable. HEART: First and second heart sounds are normal; no edema. LUNGS: Respiratory rate normal; clear to auscultation. ABDOMEN: Soft, nontender, liver spleen not palpable, no masses palpable. PSYCH: Alert and oriented x3; mood and affect dawit l. MUSCULOSKELETAL:No Clubbing/cyanosis;muscles-grossly intact NEUROLOGICAL: Cranial nerves grossly intact; no facial asymmetry, very slight clumsiness in the right arm. Speech very slightly slow LYMPHATICS: No lymph nodes palpable in the axilla and neck INVESTIGATIONS, reviewed in the clinical context: Previous labs February 24, 2024: White count 7.2 hemoglobin 11 platelets 280 potassium 3.9 creatinine 1.13 Investigations from February 13 and MRI brain: CVA involving the left MCA territory predominantly involving the cortex with evidence of laminar necrosis. LDL 62.6 February 13, 2024: White count 5.7 hemoglobin 13.9 platelets 265 sodium 141 potassium 4.2 BUN 16 creatinine 1.21 Troponin I less than 0.012 LDL 62.6 Urine drug screen: Negative EKG tracing personally reviewed by me-normal sinus rhythm. Chest x-ray film personally reviewed by me-unremarkable. Borderline cardiomegaly CT brain without contrast: Some white matter changes mild in the left lauren radiata area. Could be subcortical ischemic changes of indeterminate age. CT angiogram of head and neck: Critical stenosis left internal carotid artery at the origin. Severe narrowing right internal carotid artery origin. Additional areas of moderate narrowing of the proximal common carotid vessels. Carotid Doppler: Moderate amount of atherosclerotic plaque seen within the bilateral carotid bulbs and bilateral ICA with left greater than right. Near occlusion of the left ICA at its origin. Greater than 70% stenosis of the right ICA at its origin. Assessment and plan: -Right carotid endarterectomy with patch angioplasty, 4 internal carotid artery stenosis greater than 70% Aspirin, Plavix, -Left carotid endarterectomy with patch angioplasty for critical stenosis left internal Carine artery at the origin more than 90%.-February 2024 -Risperdal mild right arm discoordination slight dysarthria from stroke in January 2024 Aspirin. Plavix. Lipitor. -Essential hypertension Cozaar 100 mg nightly. Chlorthalidone 25 mg/day -Hyperlipidemia Lipitor 80 mg nightly -Full code Care was discussed with the patient. Patient earlier was on nitroglycerin drip. Also IV cefazolin for infection prophylaxis. Care was discussed with the patient. Thank you Dr. Calzada Past Medical History Past Medical History: CVA/TIA, Hyperlipidemia, Hypertension, Vascular Disorder Additional Past Medical History / Comment(s): ischemic CVA 02/08/24 w/ expressive dysphasia which is improving, bilat. carotid stenosis History of Any Multi-Drug Resistant Organisms: None Reported Past Surgical History: Appendectomy, Cholecystectomy Additional Past Surgical History / Comment(s): lft carotid endartectomy, Past Anesthesia/Blood Transfusion Reactions: No Reported Reaction Smoking Status: Never smoker - Past Family History Father Family Medical History: Myocardial Infarction ([place]) Additional Family Medical History / Comment(s): age 80 of [place] Medications and Allergies Home Medications Medication Instructions Recorded Confirmed Type Chlorthalidone 25 mg PO DAILY #30 tablet 02/15/24 05/09/24 Rx Clopidogrel [Plavix] 75 mg PO DAILY #30 tab 02/15/24 05/09/24 Rx Losartan Potassium [Cozaar] 100 mg PO HS #30 tab 02/15/24 05/09/24 Rx Aspirin 81 mg PO DAILY tab 02/24/24 05/09/24 Rx Atorvastatin [Lipitor] 40 mg PO HS 05/07/24 05/09/24 History Allergies Allergy/AdvReac Type Severity Reaction Status Date / Time No Known Allergies Allergy Verified 05/09/24 06:18 Physical Exam Vitals: Vital Signs Temp Pulse Pulse Pulse Resp BP BP 05/09/24 19:00 110 H 15 05/09/24 18:45 105 H 26 H 05/09/24 18:30 101 H 22 05/09/24 18:15 108 H 20 123/83 05/09/24 18:00 114 H 11 L 123/83 05/09/24 17:45 112 H 18 05/09/24 17:30 118 H 22 05/09/24 17:15 113 H 30 H 05/09/24 17:00 114 H 18 05/09/24 16:45 114 H 10 L 05/09/24 16:30 109 H 24 05/09/24 16:15 108 H 14 05/09/24 16:00 99.1 F 107 H 15 123/83 05/09/24 15:45 114 H 17 05/09/24 15:41 112 H 13 05/09/24 15:23 100 14 111/63 05/09/24 14:51 05/09/24 14:36 100 14 109/64 05/09/24 14:27 05/09/24 14:21 05/09/24 14:15 100 16 111/61 05/09/24 13:40 05/09/24 13:33 97 14 05/09/24 13:10 93 14 05/09/24 12:56 86 16 116/68 05/09/24 12:30 88 14 05/09/24 12:16 92 14 99/57 05/09/24 12:08 93 16 05/09/24 12:06 05/09/24 11:58 05/09/24 11:53 92 16 110/66 05/09/24 11:45 94 16 110/65 05/09/24 11:36 92 16 114/68 05/09/24 11:27 90 16 111/67 05/09/24 11:18 87 16 117/71 05/09/24 11:07 87 16 110/69 05/09/24 10:56 89 14 106/59 05/09/24 10:43 97.0 F L 103 H 16 05/09/24 10:34 97.0 F L 112 H 18 136/71 05/09/24 06:27 97.7 F 86 18 168/78 BP Pulse Ox 05/09/24 19:00 92 L 05/09/24 18:45 94 L 05/09/24 18:30 92 L 05/09/24 18:15 96 05/09/24 18:00 94 L 05/09/24 17:45 94 L 05/09/24 17:30 93 L 05/09/24 17:15 94 L 05/09/24 17:00 94 L 05/09/24 16:45 95 05/09/24 16:30 93 L 05/09/24 16:15 91 L 05/09/24 16:00 96 05/09/24 15:45 94 L 05/09/24 15:41 05/09/24 15:23 126/52 93 L 05/09/24 14:51 138/57 05/09/24 14:36 150/58 96 05/09/24 14:27 134/59 05/09/24 14:21 142/64 05/09/24 14:15 157/60 94 L 05/09/24 13:40 171/62 05/09/24 13:33 166/62 100 05/09/24 13:10 156/56 99 05/09/24 12:56 158/58 98 05/09/24 12:30 159/58 100 05/09/24 12:16 145/53 98 05/09/24 12:08 159/67 98 05/09/24 12:06 163/57 05/09/24 11:58 155/56 05/09/24 11:53 164/56 98 05/09/24 11:45 161/51 98 05/09/24 11:36 160/53 98 05/09/24 11:27 130/47 94 L 05/09/24 11:18 154/50 97 05/09/24 11:07 152/51 97 05/09/24 10:56 152/56 99 05/09/24 10:43 153/62 97 05/09/24 10:34 177/80 99 05/09/24 06:27 99 Intake and Output 05/09/24 05/09/24 05/09/24 06:59 14:59 22:59 Intake Total 200 1202.4 422.575 Output Total 650 1170 Balance 200 552.4 -747.425 Intake: IV 200 1202 130 Lactated Ringers 1,000 ml 80 @ 20 mls/hr IV .Q24H MIN Rx#:[id number] ceFAZolin 2 gm In Sodium 50 Chloride 0.9% 50 ml @ 100 mls/hr IVPB Q8HR MIN Rx# :[id number] Intake, IV Titration 0.4 12.575 Amount Nitroglycerin-D5w Pmx 50 0.4 12.575 mg In Dextrose/Water 1 250ml.bag @ 5 MCG/MIN 1.5 mls/hr IV .Q24H MIN Rx#: [id number] Oral 280 Output: Drainage 20 Right Neck 20 Urine 500 1150 Estimated Blood Loss 150 Other: Voiding Method Indwelling Catheter Weight 87.2 kg ABP, PAP, CO, CI - Last 8 Hours Arterial Blood Pressure 117/56 Arterial Blood Pressure 134/56 Arterial Blood Pressure 133/55 Arterial Blood Pressure 107/53 Arterial Blood Pressure 123/56 Arterial Blood Pressure 141/57 Arterial Blood Pressure 136/59 Arterial Blood Pressure 153/61 Arterial Blood Pressure 155/65 Arterial Blood Pressure 162/73 Arterial Blood Pressure 148/59 Arterial Blood Pressure 167/64 Arterial Blood Pressure 165/57 Arterial Blood Pressure 173/64 Results Labs: Abnormal Lab Results - Last 24 Hours (Table) 05/09/24 Range/Units 15:40 POC Glucose (mg/dL) 121 H (70-110) mg/dL
[2024-05-09] MEDS: ATORVASTATIN 40 MG TAB PO SCH (20:55)
[2024-05-09] MEDS: CHLORTHALIDONE 25 MG TAB PO SCH (20:55)
[2024-05-09] MEDS: LOSARTAN 50 MG TAB PO SCH (20:55)
--- NOTE | 2024-05-10 08:08 | P.DS ---
Providers Date of admission: 05/09/24 05:37 Expected date of discharge: 05/10/24 Attending physician: Maria L Calzada DO Consults: 05/09/24 16:00 Consult Physician Routine Consulting Provider: Trip Munguia Consult Reason/Comments: medical management Do you want consulting provider notified?: Yes Primary care physician: Angel Raphael DO Hospital Course: 68-year-old male with high-grade right internal carotid artery stenosis who previously underwent left carotid endarterectomy and patch angioplasty in February of this year that was well-tolerated. Left side was the symptomatic side which was done first and patient had presented outpatient for right carotid endarterectomy secondary to patient's age. He is postop day #1 for right carotid endarterectomy with patch angioplasty. He was admitted to the ICU for blood pressure management initially on nitroglycerin however was discontinued through the evening yesterday. This morning he is sitting up in bed. He is to lerating clear liquid diet. Calzada catheter remains in with clear urine. He denies any focal deficits, no shortness of breath or chest pain. Right sided neck is tender but no significant pain. He had 2 L of nasal cannula through the night while sleeping however this morning he is 97% on room air. Blood pressures have been stable. He has been afebrile. LISE drain with serosanguineous drainage little darker in color 35 mL through the night and 25 this morning. Exam General appearance: The patient is alert, oriented, appears in no acute distress. HET: Head is normocephalic and atraumatic. Pupils are equal and reactive. Neck: Supple. Right side of neck incision well-approximated, minimal swelling and ecchymosis. Heart: Regular. Lungs: Equal expansion, normal respiratory effort. Abdomen: Soft, nontender, nondistended. Extremities: Normal skin color and turgor. Neurological: No focal deficits. Strength and sensation are grossly intact. Assessment 1. High-grade right internal carotid artery stenosis status post carotid endarterectomy with patch angioplasty 2. History of symptomatic left ICA stenosis status post carotid endarterectomy with patch angioplasty in February 2024 3. History of hypertension 4. History of hyperlipidemia Plan 1. Plavix 75 mg daily 2. Discontinue Calzada catheter 3. Discontinue arterial line 4. Patient may advance to heart healthy diet 5. Encourage ambulation 6. Plan for discharge later today 7. LISE drain to remain in place. Patient will follow-up with Dr. Calzada on 05/13/2024 at their [place] office. LISE drain instructions reviewed with patient. Patient voiced understanding. 8. Discharge instructions reviewed with patient The impression and plan of care has been dictated as directed. Dr. Calzada I performed a history and examination of this patient, discussed the same with the dictator. I agree with the dictator's note ,documented as a scribe. Any additional findings or plans will be noted. Procedures: Right carotid endarterectomy with patch angioplasty Patient Condition at Discharge: Stable Plan - Discharge Summary Discharge Rx Participant: No New Discharge Prescriptions: New Acetaminophen Tab [Tylenol] 650 mg PO Q4HR PRN tab PRN Reason: Pain Continue Losartan Potassium [Cozaar] 100 mg PO HS #30 tab Clopidogrel [Plavix] 75 mg PO DAILY #30 tab Aspirin 81 mg PO DAILY tab Chlorthalidone 25 mg PO DAILY #30 tablet Atorvastatin [Lipitor] 40 mg PO HS Discharge Medication List Chlorthalidone 25 mg PO DAILY #30 tablet 02/15/24 [Rx] Clopidogrel [Plavix] 75 mg PO DAILY #30 tab 02/15/24 [Rx] Losartan Potassium [Cozaar] 100 mg PO HS #30 tab 02/15/24 [Rx] Aspirin 81 mg PO DAILY tab 02/24/24 [Rx] Atorvastatin [Lipitor] 40 mg PO HS 05/07/24 [History] Acetaminophen Tab [Tylenol] 650 mg PO Q4HR PRN tab 05/10/24 [Rx] Follow up Appointment(s)/Referral(s): Maria L Calzada DO [STAFF PHYSICIAN] - 05/13/24 8:15 am (Appointment will be at their [place] office at [address] [place] [address] Office phone # ) Patient Instructions/Handouts: Carotid Endarterectomy (DC) Activity/Diet/Wound Care/Special Instructions: No strenuous activity or heavy lifting greater than 10 pounds. May shower tomorrow but no tub bathing or soaking. Watch incision site for infection including redness, drainage, or temperature greater than 100.4. If you notice he symptoms please call office Keep LISE drain in place. Emptied daily as shown. Follow-up with Dr. Calzada on 05/13/2024 at 8:15 AM their [place] [facility] office. Office phone #[phone]. Discharge Disposition: HOME SELF-CARE
[2024-05-10] MEDS: ASPIRIN 81 MG PO SCH (08:38)
[2024-05-10] MEDS: CLOPIDOGREL 75 MG TAB PO SCH (08:38)
[2024-05-10 12:45] VITALS: BP 114/63; PULSE 75; RESP 10; TEMP 98.2
--- NOTE | 2024-05-10 15:19 | P.PN ---
Progress Note - Text Progress Note Date: 05/10/24 - Chief Complaint Right carotid surgery - History of Present Illness This is a pleasant 68-year-old patient, follows with Angel Raphael with Dr. Firend. Chronic stable medical conditions include hypertension, hyperlipidemia. Patient was in the hospital recently from February 13 through February 15 2024. Had presented with 6 days prior to admission t having trouble finding words while speaking.. MRI brain did confirm: Involvement of the left MCA territory predominantly involving the cortex with evidence of laminar necrosis. And CT angiogram showed critical stenosis of the left internal carotid artery. Also 70% stenosis of right ICA at its origin. Patient seen by vascular Dr. Calzada. And discharged to follow-up for surgery. February 23, 2024: Underwent left carotid endarterectomy.. Today, patient seen the ICU. Underwent right carotid endarterectomy with patch angioplasty by Dr. Calzada. Estimated blood loss 75. Patient stayed at baseline prior to surgery has slight s residual dysarthria and slight clumsiness of the r ight arm. Otherwise doing well. May 10: ICU. Up to the bathroom. Feeling well. Tolerating a diet. Will be discharged with a drain in the right neck. Questions answered. 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 No smoking alcohol. . Physical examination: VITAL SIGNS: 98.2, 75, 12, 114/63, 97% room air GENERAL: Sitting up, comfortable EYES: Pupils equal. Conjunctiva dawit l. HEENT: External appearance of nose and ears normal, oral cavity grossly normal.. Dressing over the right neck, with drain NECK: JVD not raised; masses not palpable. HEART: First and second heart sounds are normal; no edema. LUNGS: Respiratory rate normal; clear to auscultation. ABDOMEN: Soft, nontender, liver spleen not palpable, no masses palpable. PSYCH: Alert and oriented x3; mood and affect dawit l. MUSCULOSKELETAL:No Clubbing/cyanosis;muscles-grossly intact NEUROLOGICAL: Cranial nerves grossly intact; no facial asymmetry, very slight clumsiness in the right arm. 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 LDL 62.6 February 13, 2024: White count 5.7 hemoglobin 13.9 platelets 265 sodium 141 potassium 4.2 BUN 16 creatinine 1.21 Troponin I less than 0.012 LDL 62.6 Urine drug screen: Negative EKG tracing personally reviewed by me-normal sinus rhythm. Chest x-ray film personally reviewed by me-unremarkable. Borderline cardiomegaly CT brain without contrast: Some white matter changes mild in the left lauren radiata area. Could be subcortical ischemic changes of indeterminate age. CT angiogram of head and neck: Critical stenosis left internal carotid artery at the origin. Severe narrowing right internal carotid artery origin. Additional areas of moderate narrowing of the proximal common carotid vessels. Carotid Doppler: Moderate amount of atherosclerotic plaque seen within the bilateral carotid bulbs and bilateral ICA with left greater than right. Near occlusion of the left ICA at its origin. Greater than 70% stenosis of the right ICA at its origin. Assessment and plan: -Right carotid endarterectomy with patch angioplasty, 4 internal carotid artery stenosis greater than 70% Aspirin, Plavix, -Left carotid endarterectomy with patch angioplasty for critical stenosis left internal Carine artery at the origin more than 90%.-February 2024 -Risperdal mild right arm discoordination slight dysarthria from stroke in January 2024 Aspirin. Plavix. Lipitor. -Essential hypertension Cozaar 100 mg nightly. Chlorthalidone 25 mg/day -Hyperlipidemia Lipitor 80 mg nightly -Full code Patient should follow-up with PCP upon discharge. Questions answered. Thank you Dr. Calzada
== END 2024-05-10 13:58 | disposition home or self-care (01) | DRG 39 ==
LOC: 2ORMAIN 05:37 → 3SCARD 13:29 → 2SICU 13:33
PROVIDERS: ADMIT Surgery; ATTEND Surgery
PROC: 03UK0KZ Supplement Right Internal Carotid Artery with Nonautologous Tissue Substitute, Open Approach (ICD-10-PCS; 2024-05-09)
PROC: 03CK0ZZ Extirpation of Matter from Right Internal Carotid Artery, Open Approach (ICD-10-PCS; principal; 2024-05-09 07:30)
DX: I65.21 Occlusion and stenosis of right carotid artery (principal); I69.391 Dysphagia following cerebral infarction; I69.322 Dysarthria following cerebral infarction; Z95.828 Presence of other vascular implants and grafts; I10 Essential (primary) hypertension; E78.5 Hyperlipidemia, unspecified; Z79.82 Long term (current) use of aspirin; Z79.02 Long term (current) use of antithrombotics/antiplatelets; Z79.899 Other long term (current) drug therapy; Z82.49 Family history of ischemic heart disease and other diseases of the circulatory system
CPT/HCPCS: 86850; 86900; 86901